=== PATIENT | female | born 1950 | race Two or more races ===

== ENCOUNTER → 2021-01-24 | Outpatient (CLI) | payer MEDICARE | LOC: M WHC 15:56 | PROVIDERS: ATTEND Internal Medicine | DX: Z12.31 Encounter for screening mammogram for malignant neoplasm of breast (principal) ==

== ENCOUNTER → 2021-04-28 | Outpatient (CLI) | payer MEDICARE ==
--- NOTE | 2021-04-28 10:54 | REP ---
INDICATION: UPPER ABD PAIN. COMPARISON: None. TECHNIQUE: Real-time sonographic evaluation of right upper quadrant performed. FINDINGS: The gallbladder demonstrates no evidence of intraluminal sludge or calculi, wall thickening or pericholecystic fluid. There is no intrahepatic or extrahepatic biliary dilatation, common bile duct measures 4 mm in maximum diameter. Liver is somewhat increased in echotexture diffusely, with heterogeneity. This suggests diffuse fibrofatty infiltration. No gross mass is seen. Visualized pancreas is grossly unremarkable, not optimally seen due to overlying bowel gas. The right kidney demonstrates no hydronephrosis, with a normal size of 9.5 cm in length. No free fluid is seen. IMPRESSION: Findings suggesting some degree of fibrofatty infiltration of the liver. Otherwise unremarkable right upper quadrant ultrasound. <Electronically signed by Fabrice Murillo > 04/28/21 [id number]
== END ==
LOC: M RAD 08:47
PROVIDERS: ATTEND Internal Medicine Gastroenterology
DX: R10.10 Upper abdominal pain, unspecified (principal)

== ENCOUNTER → 2021-05-12 | Outpatient (CLI) | payer MEDICARE ==
[~2021-05-12] MED LIST: ATOR40TA75; LISI20TA33; OMEP-221; ZYRTTAB8 PO
== END ==
LOC: M LABSMTC 12:15
PROVIDERS: ATTEND Anesthesiology
DX: Z01.812 Encounter for preprocedural laboratory examination (principal); Z20.822 Contact with and (suspected) exposure to COVID-19

== ENCOUNTER 2021-05-17 12:04 | Day surgery (SDC) | payer MEDICARE ==
[~2021-05-17] VITALS: Ht 167.6 cm; Wt 93.8 kg
[~2021-05-17 12:04] MED LIST changes: -ATOR40TA75; +ATOR40TA75 PO; -LISI20TA33; +LISI20TA33 PO; +NS 1,000 ML IV ONE; -OMEP-221; +OMEP40CA5
[2021-05-17] MEDS ORDERED: propofoL 200 MG/20 ML VIAL As Ordered ONE (12:58)
[2021-05-17] MEDS ORDERED: LIDOCAINE 2% 100MG/5ML SDV (FOR ANES.) As Ordered ONE (12:58)
[2021-05-17] MEDS ORDERED: fentaNYL 100 MCG/2 ML INJECTION As Ordered ONE (12:59)
[2021-05-17 13:55] VITALS: BP 124/77
[2021-09-18] MEDS ORDERED: OMEP-173 PO (13:31)
== END 2021-05-17 14:03 | disposition home or self-care (01) ==
LOC: M OPP 12:04
PROVIDERS: ATTEND Internal Medicine Gastroenterology
DX: K44.9 Diaphragmatic hernia without obstruction or gangrene (principal); K21.9 Gastro-esophageal reflux disease without esophagitis; R10.13 Epigastric pain; Z79.899 Other long term (current) drug therapy

== ENCOUNTER 2021-09-18 08:29 | Observation (INO) | payer MEDICARE ==
[~2021-09-18] VITALS: Ht 167.6 cm; Wt 93.6 kg
[~2021-09-18 08:29] MED LIST changes: -NS 1,000 ML IV ONE; +OMEP-221; -OMEP40CA5
--- OUTSIDE RECORDS SUMMARY | 2021-09-18 08:38 | CCD | Continuity of Care Document ---
Author Author Vlad MCCORD MD Organization Unknown Address [address] [place] [address] Phone [phone] Care Team Providers Care Transitional Living Specialist Name Role Phone Jillian Mccord MD [facility] [phone] [facility] Gastroenterology [facility] [phone] Problems Active Problems Provider Date Essential hypertension Jillian Mccord MD Onset: 12/01/19 Pure hypercholesterolemia Jillian Mccord MD Onset: 12/01 Obesity Jillian Mccord MD Onset: 12/01/2020 Hyperlipidemia Jillian Mccord MD Onset: 12/01/2020 Social History Type Date Description Comments Sex Unknown Tobacco Use Start: Unknown Never Smoked Cigarettes Tobacco Use Start: Unknown Never Smoked Cigars Tobacco Use Start: Unknown Never Smoked A Pipe Tobacco Use Start: Unknown Never Used Smokeless Tobacco ETOH Use Denies alcohol use Tobacco Use Start: Unknown Patient has never smoked Recreational Drug Use Denies Drug Use Allergies and adverse reactions Active Allergies Criticality Reaction | Severity Comments Date NKDA Unable to assess criticality 12/01/2020 Seasonal Unable to assess criticality Itching, Nasal congestion | Moderate 12/01/2020 NKFA Unable to assess criticality 12/01/2020 Medications Active Medications SIG Qnty Indications Ordering Provide r Date Flonase Allergy Relief 50mcg/Act Suspension 2 sprays (50 mcg/spray) per nostril once daily as needed 29.7ml Jillian Mccord MD 09/06/[address] 1 tablet by mouth daily morning 15 minures before meals for acid reflux 90caps Jillian Mccord MD 12/02/2020 Atorvastatin Calcium 40mg Tablets 1 by mouth every day at bedtime 90talela Mccord MD 12/01/2020 ALL Day Allergy 10mg Tablets take one tablet by mouth once daily OTC Unknown 0 Lisinopril 20mg Tablets 1 by mouth every day 90cale Mccord MD Immunizations CPT Code Status Date Vaccine Lot # [id number] Given 09/06/2021 Influenza (>= 6 Months) P.F. Vaccine [id number] Given 12/01/2020 [id number] (Pneumovax 23 ) Vaccine [id number] Vital Signs Date Vital Result Comment 09/06/2021 3:02pm BP Systolic 122 mmHg BP Diastolic 80 mmHg Heart Rate 65 /min Body Temperature 97.3 F Respiratory Rate 16 /min O2 % BldC Oximetry 98 % Weight 201.25 lb Weight 91.287 kg 03/01/2021 1:02pm BP Systolic 132 mmHg BP Diastolic 60 mmHg Heart Rate 74 /min Body Temperature 97.2 F Respiratory Rate 16 /min O2 % BldC Oximetry 98 % Weight 204.12 lb Weight 92.591 kg Height 66 inches 5'6" BMI (Body Mass Index) 32.9 kg/m2 BSA (Body Surface Area) 2.02 m2 Results Description No Information Available Procedures Date Code Description Status 01/24/2021 [id number] Mammogram Completed Medical Devices Description No Information Available Encounters Description No Information Available Assessments Description No Information Available Plan of Treatment 09/06/2021 - Jillian Mccord MD* All * New Medication:* Flonase Allergy Relief 50 mcg/Act - 2 sprays (50 mcg/spray) per nostril once daily as needed * Follow up:* 6 months Functional Status Functional Condition Comment Date Status Glasses Active Mental Status Description No Information Available Referrals Description No Information Available
--- OUTSIDE RECORDS SUMMARY | 2021-09-18 08:38 | CCD ---
Author Author [facility] Organization [facility] Address Unknown Phone Unavailable Care Team Providers Care Taproom Attendant Name Role Phone Peter Unger MD Unavailable Unavailable Peter Unger MD Unavailable Unavailable Peter Unger MD Unavailable Unavailable Peter Unger MD Unavailable Unavailable Peter Unger MD Unavailable Unavailable Peter Unger MD Unavailable Unavailable Peter Unger MD Unavailable Unavailable Peter Unger MD Unavailable Unavailable Peter Unger MD Unavailable Unavailable Peter Unger MD Unavailable Unavailable Peter Unger MD Unavailable Unavailable Peter Unger MD Unavailable Unavailable Peter Unger MD Unavailable Unavailable Peter Unger MD Unavailable Unavailable Peter Unger MD Unavailable Unavailable Peter Unger MD Unavailable Unavailable Peter Unger MD Unavailable Unavailable Peter Unger MD Unavailable Unavailable Peter Unger MD Unavailable Unavailable Peter Unger MD Unavailable Unavailable Peter Unger MD Unavailable Unavailable Peter Unger MD Unavailable Unavailable Peter Unger MD Unavailable Unavailable Peter Unger MD Unavailable Unavailable Peter Unger MD Unavailable Unavailable Peter Unger MD Unavailable Unavailable Peter Unger MD Unavailable Unavailable Peter Unger MD Unavailable Unavailable Peter Unger MD Unavailable Unavailable Peter Unger MD Unavailable Unavailable Peter Unger MD Unavailable Unavailable Peter Unger MD Unavailable Unavailable Peter Unger MD Unavailable Unavailable Peter Unger MD Unavailable Unavailable Peter Unger MD Unavailable Unavailable Peter Unger MD Unavailable Unavailable Peter Unger MD Unavailable Unavailable Peter Unger MD Unavailable Unavailable Peter Unger MD Unavailable Unavailable Peter Unger MD Unavailable Unavailable Peter Unger MD Unavailable Unavailable Peter Unger MD Unavailable Unavailable Peter Unger MD Unavailable Unavailable Peter Unger MD Unavailable Unavailable Peter Unger MD Unavailable Unavailable Peter Unger MD Unavailable Unavailable Peter Unger MD Unavailable Unavailable Peter Unger MD Unavailable Unavailable Peter Unger MD Unavailable Unavailable Peter Unger MD Unavailable Unavailable LOPEZ, OZIEL DENNIS MANAGER [employer] SAL[employer] Unavailable Unavailable LOPEZ, OZIEL DENNIS MANAGER [employer] SAL[employer] Unavailable Unavailable LOPEZ, OZIEL DENNIS MANAGER [employer]ELD SAL[employer] Unavailable Unavailable LOPEZ, OZIEL DENNIS MANAGER [employer]ELD SALES Unavailable Unavailable LOPEZ, OZIEL DENNIS MANAGER FIELD SALES Unavailable Unavailable LOPEZ, OZIEL DENNIS MANAGER FIELD SALES Unavailable Unavailable LOPEZ, OZIEL DENNIS MANAGER [employer]ELD SALES Unavailable Unavailable LOPEZ, OZIEL DENNIS MANAGER [employer]ELD SALES Unavailable Unavailable LOPEZ, OZIEL DENNIS MANAGER FIELD SALES Unavailable Unavailable LOPEZ, OZIEL DENNIS MANAGER [employer]ELD SALES Unavailable Unavailable LOPEZ, OZIEL DENNIS MANAGER FIELD SALES Unavailable Unavailable LOPEZ, OZIEL DENNIS MANAGER FIELD SALES Unavailable Unavailable LOPEZ, OZIEL DENNIS MANAGER FIELD SALES Unavailable Unavailable LOPEZ, OZIEL DENNIS MANAGER FIELD SALES Unavailable Unavailable LOPEZ, OZIEL DENNIS MANAGER FIELD SALES Unavailable Unavailable LOPEZ, OZIEL DENNIS MANAGER FIELD SALES Unavailable Unavailable LOPEZ, OZIEL DENNIS MANAGER FIELD SALES Unavailable Unavailable LOPEZ, OZIEL DENNIS MANAGER FIELD SALES Unavailable Unavailable LOPEZ, OZIEL DENNIS MANAGER FIELD SALES Unavailable Unavailable LOPEZ, OZIEL DENNIS MANAGER FIELD SALES Unavailable Unavailable LOPEZ, OZIEL DENNIS MANAGER FIELD SALES Unavailable Unavailable LOPEZ, OZIEL DENNIS MANAGER [employer]ELD SALES Unavailable Unavailable LOPEZ, OZIEL DENNIS MANAGER [employer] SAL[employer] Unavailable Unavailable Dayton Mccord MD Unavailable Unavailable Dayton Mccord MD Unavailable Unavailable Dayton Mccord MD Unavailable Unavailable Dayton Mccord MD Unavailable Unavailable Dayton Mccord MD Unavailable Unavailable Dayton Mccord MD Unavailable Unavailable Dayton Mccord MD Unavailable Unavailable Dayton Mccord MD Unavailable Unavailable Dayton Mccord MD Unavailable Unavailable Dayton Mccord MD Unavailable Unavailable Dayton Mccord MD Unavailable Unavailable Dayton Mccord MD Unavailable Unavailable Kunnumpurath, F Jillian MD Unavailable Unavailable Kunnumpurath, F Jillian MD Unavailable Unavailable [place]unn[place]ath, F Jillian MD Unavailable Unavailable [place]unn[place]ath, F Jillian MD Unavailable Unavailable [place], F Jillian MD Unavailable Unavailable [place]ath, F Jillian MD Unavailable Unavailable [place], F Jillian MD Unavailable Unavailable [place], F Jillian MD Unavailable Unavailable [place], F Jillian MD Unavailable Unavailable [place], F Jillian MD Unavailable Unavailable [place], F Jillian MD Unavailable Unavailable [place], F Jillian MD Unavailable Unavailable [place], F Jillian MD Unavailable Unavailable [place], F Jillian MD Unavailable Unavailable [place], F Jillian MD Unavailable Unavailable [place], F Jillian MD Unavailable Unavailable [place], F Jillian MD Unavailable Unavailable [place], F Jillian MD Unavailable Unavailable [place], F Jillian MD Unavailable Unavailable [place], F Jillian MD Unavailable Unavailable [place]ath, F Jillian MD Unavailable Unavailable [place]unn[place]ath, F Jillian MD Unavailable Unavailable [place]unn[place]ath, F Jillian MD Unavailable Unavailable [place]ath, F Jillian MD Unavailable Unavailable Kunn[place]urath, F Jillian MD Unavailable Unavailable Kunnumpurath, F Jillian MD Unavailable Unavailable Kunn[place]ath, F Jillian MD Unavailable Unavailable Kunn[place]ath, F Jillian MD Unavailable Unavailable Kunnumpurath, F Jillian MD Unavailable Unavailable Kunnumpurath, F Jillian MD Unavailable Unavailable Kunnumpurath, F Jillian MD Unavailable Unavailable Kunnumpurath, F Jillian MD Unavailable Unavailable Kunnumpurath, F Jillian MD Unavailable Unavailable Kunnumpurath, F Jillian MD Unavailable Unavailable Kunnumpurath, F Jillian MD Unavailable Unavailable Kunnumpurath, F Jillian MD Unavailable Unavailable Kunnumpurath, F Jillian MD Unavailable Unavailable Kunnumpurath, F Jillian MD Unavailable Unavailable Kunnumpurath, F Jillian MD Unavailable Unavailable Kunnumpurath, F Jillian MD Unavailable Unavailable [place]ath, F Jillian MD Unavailable Unavailable [place], F Jillian MD Unavailable Unavailable [place], F Jillian MD Unavailable Unavailable [place]ath, F Jillina MD Unavailable Unavailable [place]ath, F Jillian MD Unavailable Unavailable [place], F Jillian MD Unavailable Unavailable [place], F Jillian MD Unavailable Unavailable [place], F Jillian MD Unavailable Unavailable [place], F Jillian MD Unavailable Unavailable Kunnumpurath, F Jillian MD Unavailable Unavailable Kunnumpurath, F Jillian MD Unavailable Unavailable Kunnumpurath, F Jillian MD Unavailable Unavailable Kunnumpurath, F Jillian MD Unavailable Unavailable Kunnumpurath, F Jillian MD Unavailable Unavailable Kunnumpurath, F Jillian MD Unavailable Unavailable Kunnumpurath, F Jillian MD Unavailable Unavailable Kunnumpurath, F Jillian MD Unavailable Unavailable Kunnumpurath, F Jillian MD Unavailable Unavailable Kunnumpurath, F Jillian MD Unavailable Unavailable Kunnumpurath, F Jillian MD Unavailable Unavailable Kunnumpurath, F Jillian MD Unavailable Unavailable Kunnumpurath, F Jillian MD Unavailable Unavailable Kunn[place]ath, F Jillian MD Unavailable Unavailable [place]ath, F Jillian MD Unavailable Unavailable [place]ath, F Jillian MD Unavailable Unavailable [place]ath, F Jillian MD Unavailable Unavailable [place], F Jillian MD Unavailable Unavailable [place], F Jillian MD Unavailable Unavailable [place]ath, F Jillian MD Unavailable Unavailable [place]ath, F Jillian MD Unavailable Unavailable [place]ath, F Jillian MD Unavailable Unavailable Kunn[place]urath, F Jillian MD Unavailable Unavailable Kunnumpurath, F Jillian MD Unavailable Unavailable Kunnumpurath, F Jillian MD Unavailable Unavailable [place]ath, F Jillian MD Unavailable Unavailable [place]ath, F Jillian MD Unavailable Unavailable [place], F Jillian MD Unavailable Unavailable [place], F Jillian MD Unavailable Unavailable [place], F Jillian MD Unavailable Unavailable [place], F Jillian MD Unavailable Unavailable Re-disclosure Warning The records that you are about to access may contain information from federally-assisted alcohol or drug abuse programs. If such information is present, then the following federally mandated warning applies: This information has been disclosed to you from records protected by federal confidentiality rules (42 CFR part 2). The federal rules prohibit you from making any further disclosure of this information unless further disclosure is expressly permitted by the written consent of the person to whom it pertains or as otherwise permitted by 42 CFR part 2. A general authorization for the release of medical or other information is NOT sufficient for this purpose. The Federal rules restrict any use of the information to criminally investigate or prosecute any alcohol or drug abuse patient.The records that you are about to access may contain highly sensitive health information, the redisclosure of which is protected by Article 27-F of the [facility] Public Health law. If you continue you may have access to information: Regarding HIV / AIDS; Provided by facilities licensed or operated by the [facility] Office of Mental Health; or Provided by the [facility] Office for People With Developmental Disabilities. If such information is present, then the following [facility] mandated warning applies: This information has been disclosed to you from confidential records which are protected by state law. State law prohibits you from making any further disclosure of this information without the specific written consent of the person to whom it pertains, or as otherwise permitted by law. Any unauthorized further disclosure in violation of state law may result in a fine or mcc sentence or both. A general authorization for the release of medical or other information is NOT sufficient authorization for further disc losure. Encounters Encounter Providers Location Date Indications Data Source(s ) Outpatient Attender: Jillian Mccord MD 1 02:54:00 PM EDT - 09/06/2021 02:54:00 PM EDT [facility] Outpatient Attender: Marco A Unger MD Main Office 04/18/2021 09:30:00 AM EDT [facility] ([facility]) Outpatient Attender: Jillian Mccord MD 0 03/01/2021 12:53:00 PM EDT - 03/01/2021 12:53:00 PM EDT [facility] Outpatient Attender: DENNIS LOPEZ NP 021 02:23:00 PM EST - 01/02/2021 02:23:00 PM [facility] Outpatient Attender: Jillian Mccord MD 0 12/01/2020 02:34:00 PM EST - 12/01/2020 02:34:00 PM EST [facility] Outpatient Attender: Jillian Mccord MD Family Practice 0 12/01/2020 01:40:00 PM EST [facility] ([facility]) Immunizations Vaccine Date Status Description Data Source(s) New in 2011. IIV4 09/06/2021 03:44:00 PM EDT completed [facility] ([facility]) pneumococcal polysaccharide PPV23 12/01/2020 02:40:00 PM EST comple jayy [facility] ([facility]) Medications Medication Brand Name Start Date Product Form Dose Route Admi nistrative Instructions Pharmacy Instructions Status Indications Reaction Description Data Source(s) Flonase Allergy Relief Flonase Allergy Relief 09/06/2021 12:00:00 AM E DT active [facility] ([facility]) Omeprazole 40 MG Delayed Release Oral Capsule Omeprazole 04/18/2021 12:00:00 AM EDT ORAL active [facility] ([facility]) Triamcinolone Acetonide 5 MG/ML Topical Cream Triamcinolone Acetonide 03/01/2021 12:00:00 AM EDT active M [facility] ([facility]) Omeprazole 20 MG Delayed Release Oral Capsule Omeprazole 12/02/2020 12:00:00 AM EST ORAL active [facility] ([facility]) atorvastatin 40 MG Oral Tablet Atorvastatin Calcium 12/01/2020 1 2:00:00 AM EST ORAL active [facility] ( [facility]) Insurance Providers Payer name Policy type / Coverage type Policy ID Covered alliance party ID Covered alliance party's relationship to kilgore Policy [place] Plan Information MEDICARE BLUE PPO [id number] SP [id number] [employer] MEDICARE HM [id number] [facility] MCR -OP [id number] Problems, Conditions, and Diagnoses Code Display Name Description Problem Type Effective Dates Data Source(s) Z23 Encounter for immunization Encounter for immunization Diagnosis 09/06/2021 02:54:00 PM EDT [facility] E785 Hyperlipidemia, unspecified Hyperlipidemia, unspecifie d Diagnosis 09/06/2021 02:54:00 PM EDT [facility] I10 Essential (primary) hypertension Essential (primary) h ypertension Diagnosis 09/06/2021 02:54:00 PM EDT [facility] J392 Other diseases of pharynx Other diseases of pharynx Di agnosis 09/06/2021 02:54:00 PM EDT [facility] [id number] Encounter for gynecological examination (general) (routine) without abnormal findings Encounter for gynecological examination (general) (routine) without abnormal findings Diagnosis 01/02/2021 02:23:00 PM [facility] Z1331 Encounter for screening for depression E ncounter for screening for depression Diagnosis 12/01/2020 02:34:00 PM [facility] K219 Gastro-esophageal reflux disease without esophagitis Gastro-esophageal reflux disease without esophagitis Diagnosis 12/01/2020 02:34:00 PM ES [facility] E669 Obesity, unspecified Obesity, unspecified Diagnosis 12/01/2020 02:34:00 PM [facility] [id number] Gastroesophageal reflux disease Gastroesophageal reflux disease Problem 04/18/2021 12:00:00 AM EDT [facility] E78.5 Hyperlipidemia Hyperlipidemia Problem 12/01/2020 12:00: 00 AM EST [facility] ([facility]) E66.9 Obesity Obesity Problem 12/01/2020 12:00:00 AM ES T [facility] ([facility]) [id number] Pure hypercholesterolemia Pure hypercholesterolemia Pr oblem 12/01/2020 12:00:00 AM EST [facility] ([facility]) [id number] Essential hypertension Essential hypertension Problem 12/01/2020 12:00:00 AM EST [facility] ([facility]) Surgeries/Procedures Procedure Description Date Indications Data Source(s) UPPER NDSC BIOPSY SINGLE/MULTIPLE 05/17/2021 12:00:00 AM EDT [facility] ([facility]) OFFICE OUTPATIENT NEW 45 MINUTES 04/18/2021 12:00:00 A M EDT [facility] ([facility]) Mammography (procedure) 01/24/2021 12:00:00 AM EDT [facility] ([facility]) Electrocardiogram Complete 12/01/2020 12:00:00 AM EST [facility] ([facility]) Brief Emotional/Behav Assessment W/ Scoring Doc Per Standard Inst 12/01/2020 12:00:00 AM EST [facility] ([facility]) Admin Patient Focused Health Risk Assessment Instrument 12/01/2020 12:00:00 AM EST [facility] ([facility]) Results ID Date Data Source [id number] 05/17/2021 01:20:00 PM EDT [facility] ([facility]) Name Value Range Interpretation Code Description Data Natalie rce(s) Supporting Document(s) Surgical pathology study Laboratory test result [facility] ([facility]) FINAL DIAGNOSIS A - Antrum, biopsy: Gastric mucosa with minimal chronic inflammation and scattered eosinophils in the lamina propria. No H. pylori is noted. B - Biopsy below Z line: Squamocolumnar junction mucosa with marked chronic inflammation. No intestinal metaplasia is noted. H. pylori stain was performed. 05/19/2021 - 132 CLINICAL DIAGNOSIS Abdominal pain/heartburn 05/18/2021 - 1248 GROSS DIAGNOSIS A - Received in formalin labeled "antrum biopsy" is a 0.6 x 0.2 x 0.2 cm. portion of mucosa. All in one. B - Received in formalin labeled "below Z line" is a 1 x 0.2 x 0.2 cm. aggregate of mucosal fragments. All in one. - 05/18/2021 - 8 Signed Joseph Gerardo MD 05/19/2021 1325 ID Date Data Source [id number] 03/01/2021 01:26:00 PM EDT [facility] ([facility]) Name Value Range Interpretation Code Description Data Natalie rce(s) Supporting Document(s) Hemoglobin A1c/Hemoglobin.total in Blood 5.3 % 4.4-6.1 [facility] ([facility]) Is patient fasting? N Iron [Mass/volume] in Serum or Plasma 89 ug/dL 42-135 [facility] ([facility]) Is patient fasting? N ID Date Data Source [id number] 03/01/2021 01:26:00 PM EDT [facility] ([facility]) Name Value Range Interpretation Code Description Data Natalie rce(s) Supporting Document(s) Cve Panel Laboratory test result [facility] ([facility]) Is patient fasting? N Triglycerides 149 mg/dL 35-160 [facility] ([facility]) Is patient fasting? N Cholesterol 137 mg/dL 131-200 [facility] ([facility]) Is patient fasting? N HDL 64 mg/dL 29-86 [facility] ([facility]) Is patient fasting? N LDL 68 mg/dL 65-175 [facility] ([facility]) Is patient fasting? N Risk Factor 2.1 3.2-4.4 Below low normal [facility] ([facility]) Is patient fasting? N LDL/HDL 1.06 1.47-3.22 Below low normal [facility] ( [facility]) Is patient fasting? N ID Date Data Source [id number] 03/01/2021 01:26:00 PM EDT [facility] ([facility]) Name Value Range Interpretation Code Description Data Natalie rce(s) Supporting Document(s) Thyrotropin [Units/volume] in Serum or Plasma 1.56 uIU/mL 0.47-5.01 [facility] ([facility]) Is patient fasting? N Calcidiol [Mass/volume] in Serum or Plasma 33 ng/mL [facility] ([facility]) Is patient fasting? N Cobalamin (Vitamin B12) [Mass/volume] in Serum or Plasma 1583 pg /mL 232-1245 Above high normal [facility] ([facility]) Is patient fasting? N ID Date Data Source [id number] 03/01/2021 01:26:00 PM EDT [facility] ([facility]) Name Value Range Interpretation Code Description Data Natalie rce(s) Supporting Document(s) Comprehensive [employer]abo Laboratory test result [facility] ([facility]) Is patient fasting? N Sodium 138 meq/L 134-153 [facility] ([facility]) Is patient fasting? N Potassium 4.5 meq/L 3.6-5.0 [facility] ([facility]) Is patient fasting? N Chloride 103 meq/L 98-107 [facility] ([facility]) Is patient fasting? N Co2 26 meq/L 22-30 [facility] ([facility]) Is patient fasting? N Glucose 85 mg/dL 70-99 [facility] ([facility]) Is patient fasting? N BUN 27 mg/dL 7-21 Above high normal [facility] ([facility]) Is patient fasting? N Creatinine 0.9 mg/dL 0.7-1.5 [facility] ([facility]) Is patient fasting? N BUN/Creat 30 8-27 Above high normal [facility] ([facility]) Is patient fasting? N Total Protein 7.6 g/dL 6.3-8.2 [facility] Is patient fasting? N Albumin 4.4 g/dL 3.9-5.0 [facility]) Is patient fasting? N A/G Ratio 1.4 0.8-2.0 [facility] ([facility]) Is patient fasting? N Calcium 9.9 mg/dL 8.4-10.2 [facility] ([facility]) Is patient fasting? N Globulin 3.2 GM/DL 2.4-3.2 [facility]) Is patient fasting? N Alkaline Phos 61 U/L 38-126 [facility] ([facility]) Is patient fasting? N Total Bili Laboratory test result 0.2-1.3 [facility] ([facility]) Is patient fasting? N Sgot/Ast 35 U/L 5-40 [facility]) Is patient fasting? N SGPT/Alt 32 U/L 7-56 [facility] ([facility]) Is patient fasting? N Non-Aa GFR Laboratory test result [facility] ([facility]) Is patient fasting? N Age 70 yrs [facility] ([facility]) Is patient fasting? N Anion Gap 9.0 mmol/L 8.0-16.0 [facility] ([facility]) Is patient fasting? N Afr Amer GFR Laboratory test result [facility] ([facility]) Is patient fasting? N ID Date Data Source [id number] 03/01/2021 01:26:00 PM EDT [facility] ([facility]) Name Value Range Interpretation Code Description Data Natalie rce(s) Supporting Document(s) CBC No Diff Laboratory test result [facility] ([facility]) Is patient fasting? N WBC 6.7 10^3/uL 4.2-11.0 [facility] ([facility]) Is patient fasting? N RBC 4.58 10^6/uL 4.20-5.40 [facility] ([facility]) Is patient fasting? N Hemoglobin 12.5 g/dL 12.0-16.0 [facility] ([facility]) Is patient fasting? N MCV 84.1 fL 81.0-101 [facility] ([facility]) Is patient fasting? N Hematocrit 38.5 % 37.0-47.0 [facility] ([facility]) Is patient fasting? N MCH 27.3 pg 27.0-34.0 [facility] ([facility]) Is patient fasting? N MCHC 32.5 g/dL 31.0-36.0 [facility] ([facility]) Is patient fasting? N Platelets 200 10^3/uL 150-450 [facility] ([facility]) Is patient fasting? N RDW 14.3 % 11.5-14.5 [facility] ([facility]) Is patient fasting? N MPV 12.3 fL 7.4-10.4 Above high normal [facility] ([facility]) Is patient fasting? N ID Date Data Source [id number] 03/03/2021 08:34:00 AM EDT [facility] Value Range Interpretation Code Description Data Natalie rce(s) Supporting Document(s) Calcidiol [Moles/volume] in Serum or Plasma 33 NG/ML [facility] VITAMIN-D(2 5HYDROXY) Deficiency: <=20 ng/ml Insufficiency: 21-29 ng/ml Preferred level: => 30 ng/ml ID Date Data Source [id number] 03/01/2021 05:23:00 PM EDT [facility] Value Range Interpretation Code Description Data Natalie rce(s) Supporting Document(s) Cobalamin (Vitamin B12) [Mass/volume] in Serum or Plasma 1583 PG /ML 232 - 1245 H [facility] ID Date Data Source [id number] 03/01/2021 05:22:00 PM EDT [facility] Value Range Interpretation Code Description Data Natalie rce(s) Supporting Document(s) CBC NO DIFF [facility] ital COMPLETE BLOOD COUNT Leukocytes [#/volume] in Blood by Automated count 6.7 10^3/uL 4.2 - 1 1.0 [facility] Erythrocytes [#/volume] in Blood by Automated count 4.58 10^6/uL 4. 20 - 5.40 [facility] Hemoglobin [Mass/volume] in Blood 12.5 g/dL 12.0 - 16.0 [facility] Hematocrit [Volume Fraction] of Blood by Automated count 38.5 % 3 7.0 - 47.0 [facility] Erythrocyte mean corpuscular volume [Entitic volume] by Auto mated count 84.1 fL 81.0 - 101 [facility] Erythrocyte mean corpuscular hemoglobin [Entitic mass] by Automated count 27.3 pg 27.0 - 34.0 [facility] Erythrocyte mean corpuscular hemoglobin concentration [Mass/volume] by Automated count 32.5 g/dL 31.0 - 36.0 [facility] Erythrocyte distribution width [Ratio] by Automated count 14.3 % 11.5 - 14.5 [facility] Platelets [#/volume] in Blood by Automated count 200 10^3/uL 150 - 45 0 [facility] Platelet mean volume [Entitic volume] in Blood by Automated count 12.3 fL 7.4 - 10.4 H [facility] ID Date Data Source [id number] 03/01/2021 05:21:00 PM EDT [facility] Value Range Interpretation Code Description Data Natalie rce(s) Supporting Document(s) Thyrotropin [Units/volume] in Serum or Plasma by Detec tion limit <= 0.05 mIU/L 1.56 uIU/mL 0.47 - 5.01 [facility] ID Date Data Source [id number] 03/01/2021 05:20:00 PM EDT [facility] Name Value Range Interpretation Code Description Data Natalie rce(s) Supporting Document(s) CVE PANEL [facility] al LIPID PANEL Cholesterol [Mass/volume] in Serum or Plasma 137 MG/DL 131 - 200 [facility] Deprecated Triglyceride [Mass/volume] in Serum or Plasma 149 MG/DL 3 5 - 160 [facility] HDL 64 MG/DL 29 - [facility] Cholesterol in LDL [Mass/volume] in Serum or Plasma by Direc t assay 68 mg/dL 65 - 175 [facility] Cholesterol.total/Cholesterol in HDL [Mass Ratio] in Serum o r Plasma 2.1 3.2 - 4.4 L [facility] LDL/HDL 1.06 1.47 - 3.22 L [facility] ital CVE RISK CHOL/HDL LDL/HDLMEN: 1/2 AVERAGE 3.43 1.00 AVERAGE 4.97 3.55 2X AVERAGE 9.55 6.25 3X AVERAGE 23.99 7.99WOMEN: 1/2 AVERAGE 3.27 1.47 AVERAGE 4.44 3.22 2X AVERAGE 7.05 5.03 3X AVERAGE 11.04 6.14 ID Date Data Source [id number] 03/01/2021 05:20:00 PM EDT [facility] Name Value Range Interpretation Code Description Data Natalie e(s) Supporting Document(s) COMPREHENSIVE METABOLIC PANEL [facility] COMPREHENSIVE METABOLIC PANEL Sodium [Moles/volume] in Serum or Plasma 138 mEq/L 134 - 153 [facility] Potassium [Moles/volume] in Serum or Plasma 4.5 mEq/L 3.6 - 5.0 [facility] Chloride [Moles/volume] in Serum or Plasma 103 mEq/L 98 - 107 [facility] Carbon dioxide, total [Moles/volume] in Serum or Plasma 26 MEQ/L 22 - 30 [facility] Glucose [Mass/volume] in Serum or Plasma 85 MG/DL 70 - 99 [facility] BUN 27 MG/DL 7 - 21 [facility] Creatinine [Mass/volume] in Serum or Plasma 0.9 MG/DL 0.7 - 1.5 [facility] BUN/CREAT 30 8 - 27 [facility] Protein [Mass/volume] in Serum or Plasma 7.6 G/DL 6.3 - 8.2 [facility] Albumin [Mass/volume] in Serum or Plasma 4.4 G/DL 3.9 - 5.0 [facility] Globulin [Mass/volume] in Serum by calculation 3.2 GM/DL 2.4 - 3.2 [facility] A/G RATIO 1.4 0.8 - 2.0 [facility] Calcium [Mass/volume] in Serum or Plasma 9.9 MG/DL 8.4 - 10.2 [facility] Bilirubin.total [Mass/volume] in Serum or Plasma <0.7 MG/DL 0.2 - 1.3 [facility] Alkaline phosphatase [Enzymatic activity/volume] in Serum or Plasma 61 U/L 38 - 126 [facility] Aspartate aminotransferase [Enzymatic activity/volume] in Serum or Plasma 35 U/L 5 - 40 [facility] Alanine aminotransferase [Enzymatic activity/volume] in Seru m or Plasma 32 U/L 7 - 56 [facility] Anion gap 3 in Serum or Plasma 9.0 mmol/L 8.0 - 16.0 [facility] 70 [facility] >60 mL/min [facility] ital AFR AMER GFR >60 [facility] Male GFR In terprentation 20-49 yrs >60 mL/min Normal 50-59 yrs >56 mL/min Normal 60-69 yrs >49 mL/min Normal 70-79yrs >42 mL/min Normal 80 and above >35 mL/min Normal Female GFR Interpretation 20-39 yrs >60 mL/min Normal 40-49 yrs >58 mL/min Normal 50-59 yrs >51 mL/min Normal 60-69 yrs >45 mL/min Normal 70-79 yrs >39 mL/min Normal 80 and above >32 mL/min Normal ID Date Data Source [id number] 03/01/2021 05:20:00 PM EDT [facility] Name Value Range Interpretation Code Description Data Natalie rce(s) Supporting Document(s) Hemoglobin A1c/Hemoglobin.total in Blood 5.3 % 4.4 - 6.1 [facility] {A1]{HB] ID Date Data Source [id number] 03/01/2021 05:09:00 PM EDT [facility] Name Value Range Interpretation Code Description Data Natalie rce(s) Supporting Document(s) Iron [Mass/volume] in Serum or Plasma 89 UG/DL 42 - 135 [facility] ID Date Data Source [id number] 12/01/2020 03:45:00 PM EST [facility] ([facility]) Name Value Range Interpretation Code Description Data Natalie rce(s) Supporting Document(s) Inhouse EKG Laboratory test result [facility] ([facility]) ID Date Data Source [id number] 12/01/2020 03:05:00 PM EST [facility] ([facility]) Name Value Range Interpretation Code Description Data Natalie rce(s) Supporting Document(s) Mammo Screening Bilateral with CAD [facility]) Procedure Social History No Information Vital Signs ID Date Data Source UNK Name Value Range Interpretation Code Description Data Source(s) Systolic blood pressure 122 mm[Hg] 122 mm[Hg] [facility] ([facility]) Diastolic blood pressure 80 mm[Hg] 80 mm[Hg] [facility] ([facility]) Heart rate 65 /min 65 /min [facility] ([facility]) Body temperature 97.3 [degF] 97.3 [degF] [facility] ([facility]) Respiratory rate 16 /min 16 /min [facility] ( [facility]) Oxygen saturation in Arterial blood by Pulse oximetry 98 % 98 % [facility] ([facility]) Body weight 201.25 [lb_av] 201.25 [lb_av] [facility] ([facility]) Body weight 91.287 kg 91.287 kg [facility] ([facility]) Body height 68 [in_i] 68 [in_i] [facility] ([facility]) 5'8" Body weight 204.00 [lb_av] 204.00 [lb_av] [facility] ([facility]) Systolic blood pressure 132 mm[Hg] 132 mm[Hg] [facility] ([facility]) Diastolic blood pressure 70 mm[Hg] 70 mm[Hg] [facility] ([facility]) Heart rate 66 /min 66 /min [facility] ([facility]) Body mass index (BMI) [Ratio] 31.0 kg/m2 31.0 k g/m2 [facility] ([facility]) Body weight 92.534 kg 92.534 kg [facility] ([facility]) Body temperature 96.8 [degF] 96.8 [degF] [facility] ([facility]) Systolic blood pressure 132 mm[Hg] 132 mm[Hg] [facility] ([facility]) Diastolic blood pressure 60 mm[Hg] 60 mm[Hg] [facility] ([facility]) Heart rate 74 /min 74 /min [facility] ([facility]) Body temperature 97.2 [degF] 97.2 [degF] [facility] ([facility]) Respiratory rate 16 /min 16 /min [facility] ( [facility]) Oxygen saturation in Arterial blood by Pulse oximetry 98 % 98 % [facility] ([facility]) Body weight 204.12 [lb_av] 204.12 [lb_av] [facility] ([facility]) Body weight 92.591 kg 92.591 kg [facility] ([facility]) Body height 66 [in_i] 66 [in_i] [facility] ([facility]) 5'6" Body mass index (BMI) [Ratio] 32.9 kg/m2 32.9 k g/m2 [facility] ([facility]) Body surface area Derived from formula 2.02 m2 2.02 m2 [facility] ([facility]) Systolic blood pressure 142 mm[Hg] 142 mm[Hg] [facility] ([facility]) Diastolic blood pressure 76 mm[Hg] 76 mm[Hg] [facility] ([facility]) Body height 66 [in_i] 66 [in_i] [facility] ([facility]) 5'6" Body mass index (BMI) [Ratio] 33.1 kg/m2 33.1 k g/m2 [facility] ([facility]) Body surface area Derived from formula 2.02 m2 2.02 m2 [facility] ([facility] Heart rate 80 /min 80 /min [facility] ([facility]) Body temperature 96.9 [degF] 96.9 [degF] [facility] ([facility]) Body weight 205.00 [lb_av] 205.00 [lb_av] [facility] Body weight 92.988 kg 92.988 kg [facility] ([facility]) Systolic blood pressure 112 mm[Hg] 112 mm[Hg] [facility] ([facility]) Diastolic blood pressure 68 mm[Hg] 68 mm[Hg] [facility] ([facility]) Heart rate 69 /min 69 /min [facility] ([facility]) Body temperature 98.1 [degF] 98.1 [degF] [facility] ([facility]) Oxygen saturation in Arterial blood by Pulse oximetry 97 % 97 % [facility] ([facility]) Body weight 204.00 [lb_av] 204.00 [lb_av] [facility] Body weight 92.534 kg 92.534 kg [facility] ([facility]) Body height 66 [in_i] 66 [in_i] [facility] ([facility]) 5'6" Body mass index (BMI) [Ratio] 32.9 kg/m2 32.9 k g/m2 [facility] ([facility]) Body surface area Derived from formula 2.02 m2 2.02 m2 [facility] ([facility])
--- NOTE | 2021-09-18 09:29 | REP ---
INDICATION: trouble speaking. COMPARISON: None. TECHNIQUE: Soft tissue and bone windows in axial plane with coronal reconstructions provided. FINDINGS: On lateral ventricles are midline and symmetric and mildly dilated proportionate to the diffuse cerebral atrophy. 3rd and 4th ventricles are also mildly dilated. There is no vascular territory infarct, intracranial hemorrhage, mass or mass effect there are few calcifications in the basal ganglia which are normal in this age group. The mendoza-white junction differentiation was well maintained. Brainstem was unremarkable. Cerebellum with some mild atrophy. No posterior fossa hemorrhage. Basal cisterns intact. Skull base bone windows show mastoids and visualized sinuses clear. No fracture or focal lesion of the skull base or calvarium. Some mild calcifications within the carotid siphons noted bilaterally. IMPRESSION: 1. Mild ventriculomegaly with proportionate cerebral and cerebellar atrophy. No intracranial hemorrhage, acute infarct, mass or mass effect. The mendoza-white junction differentiation maintained. 2. Sinuses, mastoids, skull base and calvarium preserved. <Electronically signed by Pablo Polo > 09/18/21 [id number]
--- OUTSIDE RECORDS SUMMARY | 2021-09-18 10:15 | CCD ---
Author Author [facility] Organization [facility] Address Unknown Phone Unavailable Care Team Providers Care Aerologist Name Role Phone Peter Unger MD Unavailable [...] Unger MD Unavailable Unavailable LOPEZ, OZIEL DENNIS METAL TILE SETTER Unavailable Unavailable LOPEZ, OZIEL DENNIS METAL TILE SETTER Unavailable Unavailable LOPEZ, OZIEL DENNIS METAL TILE SETTER Unavailable Unavailable LOPEZ, OZIEL DENNIS METAL TILE SETTER Unavailable Unavailable LOPEZ, OZIEL DENNIS METAL TILE SETTER Unavailable Unavailable LOPEZ, OZIEL DENNIS METAL TILE SETTER Unavailable Unavailable LOPEZ, OZIEL DENNIS METAL TILE SETTER Unavailable Unavailable LOPEZ, OZIEL DENNIS METAL TILE SETTER Unavailable Unavailable LOPEZ, OZIEL DENNIS METAL TILE SETTER Unavailable Unavailable LOPEZ, OZIEL DENNIS METAL TILE SETTER Unavailable Unavailable LOPEZ, OZIEL DENNIS METAL TILE SETTER Unavailable Unavailable LOPEZ, OZIEL DENNIS METAL TILE SETTER Unavailable Unavailable LOPEZ, OZIEL DENNIS METAL TILE SETTER Unavailable Unavailable LOPEZ, OZIEL DENNIS METAL TILE SETTER Unavailable Unavailable LOPEZ, OZIEL DENNIS METAL TILE SETTER Unavailable Unavailable LOPEZ, OZIEL DENNIS METAL TILE SETTER Unavailable Unavailable LOPEZ, OZIEL DENNIS METAL TILE SETTER Unavailable Unavailable LOPEZ, OZIEL DENNIS METAL TILE SETTER Unavailable Unavailable LOPEZ, OIZEL DENNIS METAL TILE SETTER Unavailable Unavailable LOPEZ, OZIEL DENNIS METAL TILE SETTER Unavailable Unavailable LOPEZ, OZIEL DENNIS METAL TILE SETTER Unavailable Unavailable LOPEZ, OZIEL DENNIS METAL TILE SETTER Unavailable Unavailable LOPEZ, OZIEL DENNIS METAL TILE SETTER Unavailable Unavailable Dayton Mccord MD Unavailable Unavailable [...] Article 27-F of the [facility] Public Health law. If you continue you may have access to information: Regarding HIV / AIDS; Provided by facilities licensed or operated by the [facility] Office of Mental Health; or Provided by the [facility] Office for People With Developmental Disabilities. If such information is present, then the following [facility] mandated warning applies: This information has been [...] law may result in a fine or half-way sentence or both. A general authorization for the release of medical or other information is NOT sufficient authorization for further disc losure. Encounters Encounter Providers Location Date Indications Data Source(s ) Outpatient Attender: Jillian Mccord MD 1 02:54:00 PM EDT - 09/06/2021 02:54:00 PM EDT [facility] Outpatient Attender: Marco A Unger MD Main Office 04/18/2021 09:30:00 AM EDT [facility] ([facility]) Outpatient Attender: Jillian Mccord MD 0 03/01/2021 12:53:00 PM EDT - 03/01/2021 12:53:00 PM EDT [facility] Outpatient Attender: DENNIS LOPEZ NP 021 02:23:00 PM EST - 01/02/2021 02:23:00 PM [facility] Outpatient Attender: Jillian Mccord MD 0 12/01/2020 02:34:00 PM EST - 12/01/2020 02:34:00 PM EST [facility] Outpatient Attender: Jillian Mccord MD Family Practice 0 12/01/2020 01:40:00 PM EST [facility] ([facility]) Immunizations Vaccine Date Status Description Data Source(s) New in 2011. IIV4 09/06/2021 03:44:00 PM EDT completed [facility] ([facility]) pneumococcal polysaccharide PPV23 12/01/2020 02:40:00 PM EST comple jayy [facility] ([facility]) Medications Medication Brand Name Start Date Product Form Dose Route Admi nistrative Instructions Pharmacy Instructions Status Indications Reaction Description Data Source(s) Flonase Allergy Relief Flonase Allergy Relief 09/06/2021 12:00:00 AM E DT active [facility] ([facility]) Omeprazole 40 MG Delayed Release Oral Capsule Omeprazole 04/18/2021 12:00:00 AM EDT ORAL active [facility] ([facility]) Triamcinolone Acetonide 5 MG/ML Topical Cream Triamcinolone Acetonide 03/01/2021 12:00:00 AM EDT active M [facility] ([facility]) Omeprazole 20 MG Delayed Release Oral Capsule Omeprazole 12/02/2020 12:00:00 AM EST ORAL active [facility] ([facility]) atorvastatin 40 MG Oral Tablet Atorvastatin Calcium 12/01/2020 1 2:00:00 AM EST ORAL active [facility] ( [facility]) Insurance Providers Payer name Policy type / Coverage type Policy ID Covered libertarian ID Covered libertarian's relationship to kilgore Policy [place] Plan Information MEDICARE BLUE PPO 306 [id number] SP [id number] [employer] [place] MEDICARE HM [id number] [facility] MCR -OP [id number] Problems, Conditions, and Diagnoses Code Display Name Description Problem Type Effective Dates Data Source(s) Z23 Encounter for immunization Encounter for immunization Diagnosis 09/06/2021 02:54:00 PM EDT [facility] E785 Hyperlipidemia, unspecified Hyperlipidemia, unspecifie d Diagnosis 09/06/2021 02:54:00 PM EDT [facility] I10 Essential (primary) hypertension Essential (primary) h ypertension Diagnosis 09/06/2021 02:54:00 PM EDT [facility] J392 Other diseases of pharynx Other diseases of pharynx Di agnosis 09/06/2021 02:54:00 PM EDT [facility] [id number] Encounter for gynecological examination (general) (routine) without abnormal findings Encounter for gynecological examination (general) (routine) without abnormal findings Diagnosis 01/02/2021 02:23:00 PM [facility] Z1331 Encounter for screening for depression E ncounter for screening for depression Diagnosis 12/01/2020 02:34:00 PM [facility] K219 Gastro-esophageal reflux disease without esophagitis Gastro-esophageal reflux disease without esophagitis Diagnosis 12/01/2020 02:34:00 PM ES [facility] E669 Obesity, unspecified Obesity, unspecified Diagnosis 12/01/2020 02:34:00 PM [facility] [id number] Gastroesophageal reflux disease Gastroesophageal reflux disease Problem 04/18/2021 12:00:00 AM EDT [facility] E78.5 Hyperlipidemia Hyperlipidemia Problem 12/01/2020 12:00: 00 AM EST [facility] ([facility]) E66.9 Obesity Obesity Problem 12/01/2020 12:00:00 AM ES T [facility] ([facility]) [id number] Pure hypercholesterolemia Pure hypercholesterolemia Pr oblem 12/01/2020 12:00:00 AM EST [facility] ([facility]) [id number] Essential hypertension Essential hypertension Problem 12/01/2020 12:00:00 AM EST [facility] ([facility]) Surgeries/Procedures Procedure Description Date Indications Data Source(s) UPPER NDSC BIOPSY SINGLE/MULTIPLE 05/17/2021 12:00:00 AM EDT [facility] ([facility]) OFFICE OUTPATIENT NEW 45 MINUTES 04/18/2021 12:00:00 A M EDT [facility] ([facility]) Mammography (procedure) 01/24/2021 12:00:00 AM EDT [facility] ([facility]) Electrocardiogram Complete 12/01/2020 12:00:00 AM EST [facility] ([facility]) Brief Emotional/Behav Assessment W/ Scoring Doc Per Standard Inst 12/01/2020 12:00:00 AM EST [facility] ([facility]) Admin Patient Focused Health Risk Assessment Instrument 12/01/2020 12:00:00 AM EST [facility] ([facility]) Results ID Date Data Source [id number] 05/17/2021 01:20:00 PM EDT [facility] ([facility]) Name Value Range Interpretation Code Description Data Natalie rce(s) Supporting Document(s) Surgical pathology study Laboratory test result [facility] ([facility]) FINAL DIAGNOSIS A - Antrum, biopsy: Gastric [...] MD 05/19/2021 1325 ID Date Data Source [id number] 03/01/2021 01:26:00 PM EDT [facility] ([facility]) Name Value Range Interpretation Code Description Data Natalie rce(s) Supporting Document(s) Hemoglobin A1c/Hemoglobin.total in Blood 5.3 % 4.4-6.1 [facility] ([facility]) Is patient fasting? N Iron [Mass/volume] in Serum or Plasma 89 ug/dL 42-135 [facility] ([facility]) Is patient fasting? N ID Date Data Source [id number] 03/01/2021 01:26:00 PM EDT [facility] ([facility]) Name Value Range Interpretation Code Description Data Natalie rce(s) Supporting Document(s) Cve Panel Laboratory test result [facility] ([facility]) Is patient fasting? N Triglycerides 149 mg/dL 35-160 [facility] ([facility]) Is patient fasting? N Cholesterol 137 mg/dL 131-200 [facility] ([facility]) Is patient fasting? N HDL 64 mg/dL 29-86 [facility] ([facility]) Is patient fasting? N LDL 68 mg/dL 65-175 [facility] ([facility]) Is patient fasting? N Risk Factor 2.1 3.2-4.4 Below low normal [facility] ([facility]) Is patient fasting? N LDL/HDL 1.06 1.47-3.22 Below low normal [facility] ( [facility]) Is patient fasting? N ID Date Data Source [id number] 03/01/2021 01:26:00 PM EDT [facility] ([facility]) Name Value Range Interpretation Code Description Data Natalie rce(s) Supporting Document(s) Thyrotropin [Units/volume] in Serum or Plasma 1.56 uIU/mL 0.47-5.01 [facility] ([facility]) Is patient fasting? N Calcidiol [Mass/volume] in Serum or Plasma 33 ng/mL [facility] ([facility]) Is patient fasting? N Cobalamin (Vitamin B12) [Mass/volume] in Serum or Plasma 1583 pg /mL 232-1245 Above high normal [facility] ([facility]) Is patient fasting? N ID Date Data Source [id number] 03/01/2021 01:26:00 PM EDT [facility] ([facility]) Name Value Range Interpretation Code Description Data Natalie rce(s) Supporting Document(s) Comprehensive Metabo Laboratory test result [facility] ([facility]) Is patient fasting? N Sodium 138 meq/L 134-153 [facility] ([facility]) Is patient fasting? N Potassium 4.5 meq/L 3.6-5.0 [facility] ([facility]) Is patient fasting? N Chloride 103 meq/L 98-107 [facility] ([facility]) Is patient fasting? N Co2 26 meq/L 22-30 [facility] ([facility]) Is patient fasting? N Glucose 85 mg/dL 70-99 [facility] ([facility]) Is patient fasting? N BUN 27 mg/dL 7-21 Above high normal [facility] ([facility]) Is patient fasting? N Creatinine 0.9 mg/dL 0.7-1.5 [facility] ([facility]) Is patient fasting? N BUN/Creat 30 8-27 Above high normal [facility] ([facility]) Is patient fasting? N Total Protein 7.6 g/dL 6.3-8.2 [facility] Is patient fasting? N Albumin 4.4 g/dL 3.9-5.0 [facility] ([facility]) Is patient fasting? N A/G Ratio 1.4 0.8-2.0 [facility] ([facility]) Is patient fasting? N Calcium 9.9 mg/dL 8.4-10.2 [facility] ([facility]) Is patient fasting? N Globulin 3.2 GM/DL 2.4-3.2 [facility] ([facility]) Is patient fasting? N Alkaline Phos 61 U/L 38-126 [facility] ([facility]) Is patient fasting? N Total Bili Laboratory test result 0.2-1.3 [facility] ([facility]) Is patient fasting? N Sgot/Ast 35 U/L 5-40 [facility] ([facility]) Is patient fasting? N SGPT/Alt 32 U/L 7-56 [facility] ([facility]) Is patient fasting? N Non-Aa GFR Laboratory test result [facility] ([facility]) Is patient fasting? N Age 70 yrs [facility] ([facility]) Is patient fasting? N Anion Gap 9.0 mmol/L 8.0-16.0 [facility] ([facility]) Is patient fasting? N Afr Amer GFR Laboratory test result [facility] ([facility]) Is patient fasting? N ID Date Data Source [id number] 03/01/2021 01:26:00 PM EDT [facility] ([facility]) Name Value Range Interpretation Code Description Data Natalie rce(s) Supporting Document(s) CBC No Diff Laboratory test result [facility] ([facility]) Is patient fasting? N WBC 6.7 10^3/uL 4.2-11.0 [facility] ([facility]) Is patient fasting? N RBC 4.58 10^6/uL 4.20-5.40 [facility] ([facility]) Is patient fasting? N Hemoglobin 12.5 g/dL 12.0-16.0 [facility] ([facility]) Is patient fasting? N MCV 84.1 fL 81.0-101 [facility] ([facility]) Is patient fasting? N Hematocrit 38.5 % 37.0-47.0 [facility] ([facility]) Is patient fasting? N MCH 27.3 pg 27.0-34.0 [facility] ([facility]) Is patient fasting? N MCHC 32.5 g/dL 31.0-36.0 [facility] ([facility]) Is patient fasting? N Platelets 200 10^3/uL 150-450 [facility] ([facility]) Is patient fasting? N RDW 14.3 % 11.5-14.5 [facility] ([facility]) Is patient fasting? N MPV 12.3 fL 7.4-10.4 Above high normal [facility] ([facility]) Is patient fasting? N ID Date Data Source [id number] 03/03/2021 08:34:00 AM EDT [facility] Value Range Interpretation Code Description Data Natalie rce(s) Supporting Document(s) Calcidiol [Moles/volume] in Serum or Plasma 33 NG/ML [facility] VITAMIN-D(2 5HYDROXY) Deficiency: <=20 ng/ml Insufficiency: 21-29 ng/ml Preferred level: => 30 ng/ml ID Date Data Source [id number] 03/01/2021 05:23:00 PM EDT [facility] Value Range Interpretation Code Description Data Natalie rce(s) Supporting Document(s) Cobalamin (Vitamin B12) [Mass/volume] in Serum or Plasma 1583 PG /ML 232 - 1245 H [facility] ID Date Data Source [id number] 03/01/2021 05:22:00 PM EDT [facility] Value Range Interpretation Code Description Data Natalie rce(s) Supporting Document(s) CBC NO DIFF [facility] ital COMPLETE BLOOD COUNT Leukocytes [#/volume] in Blood by Automated count 6.7 10^3/uL 4.2 - 1 1.0 [facility] Erythrocytes [#/volume] in Blood by Automated count 4.58 10^6/uL 4. 20 - 5.40 [facility] Hemoglobin [Mass/volume] in Blood 12.5 g/dL 12.0 - 16.0 [facility] Hematocrit [Volume Fraction] of Blood by Automated count 38.5 % 3 7.0 - 47.0 [facility] Erythrocyte mean corpuscular volume [Entitic volume] by Auto mated count 84.1 fL 81.0 - 101 [facility] Erythrocyte mean corpuscular hemoglobin [Entitic mass] by Automated count 27.3 pg 27.0 - 34.0 [facility] Erythrocyte mean corpuscular hemoglobin concentration [Mass/volume] by Automated count 32.5 g/dL 31.0 - 36.0 [facility] Erythrocyte distribution width [Ratio] by Automated count 14.3 % 11.5 - 14.5 [facility] Platelets [#/volume] in Blood by Automated count 200 10^3/uL 150 - 45 0 [facility] Platelet mean volume [Entitic volume] in Blood by Automated count 12.3 fL 7.4 - 10.4 H [facility] ID Date Data Source [id number] 03/01/2021 05:21:00 PM EDT [facility] Value Range Interpretation Code Description Data Natalie rce(s) Supporting Document(s) Thyrotropin [Units/volume] in Serum or Plasma by Detec tion limit <= 0.05 mIU/L 1.56 uIU/mL 0.47 - 5.01 [facility] ID Date Data Source [id number] 03/01/2021 05:20:00 PM EDT [facility] Name Value Range Interpretation Code Description Data Natalie rce(s) Supporting Document(s) CVE PANEL [facility] al LIPID PANEL Cholesterol [Mass/volume] in Serum or Plasma 137 MG/DL 131 - 200 [facility] Deprecated Triglyceride [Mass/volume] in Serum or Plasma 149 MG/DL 3 5 - 160 [facility] HDL 64 MG/DL 29 - [facility] Cholesterol in LDL [Mass/volume] in Serum or Plasma by Direc t assay 68 mg/dL 65 - 175 [facility] Cholesterol.total/Cholesterol in HDL [Mass Ratio] in Serum o r Plasma 2.1 3.2 - 4.4 L [facility] LDL/HDL 1.06 1.47 - 3.[address] [facility] CVE RISK CHOL/HDL LDL/HDLMEN: 1/2 AVERAGE 3.43 1.00 AVERAGE 4.97 3.55 2X AVERAGE 9.55 6.25 3X AVERAGE 23.99 7.99WOMEN: 1/2 AVERAGE 3.27 1.47 AVERAGE 4.44 3.22 2X AVERAGE 7.05 5.03 3X AVERAGE 11.04 6.14 ID Date Data Source [id number] 03/01/2021 05:20:00 PM EDT [facility] Name Value Range Interpretation Code Description Data Natalie e(s) Supporting Document(s) COMPREHENSIVE METABOLIC PANEL [facility] COMPREHENSIVE METABOLIC PANEL Sodium [Moles/volume] in Serum or Plasma 138 mEq/L 134 - 153 [facility] Potassium [Moles/volume] in Serum or Plasma 4.5 mEq/L 3.6 - 5.0 [facility] Chloride [Moles/volume] in Serum or Plasma 103 mEq/L 98 - 107 [facility] Carbon dioxide, total [Moles/volume] in Serum or Plasma 26 MEQ/L 22 - 30 [facility] Glucose [Mass/volume] in Serum or Plasma 85 MG/DL 70 - 99 [facility] BUN 27 MG/DL 7 - 21 H [facility] Creatinine [Mass/volume] in Serum or Plasma 0.9 MG/DL 0.7 - 1.5 [facility] BUN/CREAT 30 8 - 27 H [facility] Protein [Mass/volume] in Serum or Plasma 7.6 G/DL 6.3 - 8.2 [facility] Albumin [Mass/volume] in Serum or Plasma 4.4 G/DL 3.9 - 5.0 [facility] Globulin [Mass/volume] in Serum by calculation 3.2 GM/DL 2.4 - 3.2 [facility] A/G RATIO 1.4 0.8 - 2.0 [facility] Calcium [Mass/volume] in Serum or Plasma 9.9 MG/DL 8.4 - 10.2 [facility] Bilirubin.total [Mass/volume] in Serum or Plasma <0.7 MG/DL 0.2 - 1.3 [facility] Alkaline phosphatase [Enzymatic activity/volume] in Serum or Plasma 61 U/L 38 - 126 [facility] Aspartate aminotransferase [Enzymatic activity/volume] in Serum or Plasma 35 U/L 5 - 40 [facility] Alanine aminotransferase [Enzymatic activity/volume] in Seru m or Plasma 32 U/L 7 - 56 [facility] Anion gap 3 in Serum or Plasma 9.0 mmol/L 8.0 - 16.0 [facility] A[facility] [address] [facility] NON-[facility] GFR >60 mL/min [facility] ital AFR AMER GFR >60 [facility] Male GFR In terprentation 20-49 [...] >32 mL/min Normal ID Date Data Source [id number] 03/01/2021 05:20:00 PM EDT [facility] Name Value Range Interpretation Code Description Data Natalie rce(s) Supporting Document(s) Hemoglobin A1c/Hemoglobin.total in Blood 5.3 % 4.4 - 6.1 [facility] {A1]{HB] ID Date Data Source [id number] 03/01/2021 05:09:00 PM EDT [facility] Name Value Range Interpretation Code Description Data Natalie rce(s) Supporting Document(s) Iron [Mass/volume] in Serum or Plasma 89 UG/DL 42 - 135 [facility] ID Date Data Source [id number] 12/01/2020 03:45:00 PM EST [facility] ([facility]) Name Value Range Interpretation Code Description Data Natalie rce(s) Supporting Document(s) Inhouse EKG Laboratory test result [facility] ([facility]) ID Date Data Source [id number] 12/01/2020 03:05:00 PM EST [facility] ([facility]) Name Value Range Interpretation Code Description Data Natalie rce(s) Supporting Document(s) Mammo Screening Bilateral with CAD Laboratory test result [facility] ([facility]) Procedure Social History No Information Vital Signs ID Date Data Source UNK Name Value Range Interpretation Code Description Data Source(s) Systolic blood pressure 122 mm[Hg] 122 mm[Hg] [facility] ([facility]) Diastolic blood pressure 80 mm[Hg] 80 mm[Hg] [facility] ([facility]) Heart rate 65 /min 65 /min [facility] ([facility]) Body temperature 97.3 [degF] 97.3 [degF] [facility] ([facility]) Respiratory rate 16 /min 16 /min [facility] ( [facility]) Oxygen saturation in Arterial blood by Pulse oximetry 98 % 98 % [facility] ([facility]) Body weight 201.25 [lb_av] 201.25 [lb_av] [facility] ([facility]) Body weight 91.287 kg 91.287 kg [facility] ([facility]) Body height 68 [in_i] 68 [in_i] [...] pressure 132 mm[Hg] 132 mm[Hg] [facility] ([facility]) Diastolic blood pressure 60 mm[Hg] 60 mm[Hg] [facility] ([facility]) Heart rate 74 /min 74 /min [facility] ([facility]) Body temperature 97.2 [degF] 97.2 [degF] [facility] ([facility]) Respiratory rate 16 /min 16 /min [facility] ( [facility]) Oxygen saturation in Arterial blood by Pulse oximetry 98 % 98 % [facility] ([facility]) Body weight 204.12 [lb_av] 204.12 [lb_av] [facility] T ([facility]) Body weight 92.591 kg 92.591 kg [facility] ([facility]) Body height 66 [in_i] 66 [in_i] [facility] ([facility]) 5'6" Body mass index (BMI) [Ratio] 32.9 kg/m2 32.9 k g/m2 [facility] ([facility]) Body surface area Derived from formula 2.02 m2 2.02 m2 [facility] ([facility]) Systolic blood pressure 142 mm[Hg] 142 mm[Hg] [facility] ([facility]) Diastolic blood pressure 76 mm[Hg] 76 mm[Hg] [facility] ([facility]) Body height 66 [in_i] 66 [in_i] [facility] ([facility]) 5'6" Body mass index (BMI) [Ratio] 33.1 kg/m2 33.1 k g/m2 [facility] ([facility]) Body surface area Derived from formula 2.02 m2 2.02 m2 [facility] ([facility]) Heart rate 80 /min 80 /min [facility] ([facility]) Body temperature 96.9 [degF] 96.9 [degF] [facility] ([facility]) Body weight 205.00 [lb_av] 205.00 [lb_av] [facility] Body weight 92.988 kg 92.988 kg [facility] ([facility]) Systolic blood pressure 112 mm[Hg] 112 mm[Hg] [facility] ([facility]) Diastolic blood pressure 68 mm[Hg] 68 mm[Hg] [facility] ([facility]) Heart rate 69 /min 69 /min [facility] ([facility]) Body temperature 98.1 [degF] 98.1 [degF] [facility] ([facility]) Oxygen saturation in Arterial blood by Pulse oximetry 97 % 97 % [facility] ([facility]) Body weight 204.00 [lb_av] 204.00 [lb_av] [facility] Body weight 92.534 kg 92.534 kg [facility] ([facility]) Body height 66 [in_i] 66 [in_i] [facility] ([facility]) 5'6" Body mass index (BMI) [Ratio] 32.9 kg/m2 32.9 k g/m2 [facility] ([facility]) Body surface area Derived from formula 2.02 m2 2.02 m2 [facility] ([facility])
[2021-09-18 11:45] LABS: BASO % 0.5 % (0.0-1.0); EOS # 0.1 10^3/uL (0.0-0.5); EOS % 1.7 % (0.0-3.0); HEMATOCRIT 38.7 % (36.0-47.0); HEMOGLOBIN 12.4 g/dl (12.0-15.5); LYMPH # 1.7 10^3/uL (1.5-5.0); LYMPH % 27.2 % (24.0-44.0); MEAN CORPUSCULAR HEMOGLOBIN 27.2 pg (27.0-33.0); MEAN CORPUSCULAR VOLUME 84.9 fl (80.0-96.0); MONO # 0.6 10^3/uL (0.0-0.8); MONO % 10.1 % (2.0-8.0); NEUTROPHILS # 3.8 10^3/uL (1.5-8.5); NEUTROPHILS % 60.3 % (36.0-66.0); PLATELET COUNT, AUTOMATED 205 10^3/uL (150-450); RED BLOOD COUNT 4.56 10^6/uL (4.00-5.40); WHITE BLOOD COUNT 6.4 10^3/uL (4.0-10.0)
[2021-09-18 11:57] LABS: INR 0.95; PROTHROMBIN TIME 13.1 SECONDS (12.7-14.5)
[2021-09-18 11:58] LABS: PARTIAL THROMBOPLASTIN TIME 34.1 SECONDS (25.9-37.0)
[2021-09-18 12:26] LABS: ALBUMIN 3.9 GM/DL (3.2-5.2); ALT/SGPT 30 U/L (12-78); BILIRUBIN,DIRECT 0.2 MG/DL (0.0-0.2); BILIRUBIN,TOTAL 0.6 MG/DL (0.2-1.0); BLOOD UREA NITROGEN 28 MG/DL (7-18); CALCIUM LEVEL 9.4 MG/DL (8.8-10.2); CARBON DIOXIDE LEVEL 26 MEQ/L (21-32); CHLORIDE LEVEL 106 MEQ/L (98-107); CK-MB VALUE MASS 2.3 NG/ML (<3.6); CPK CREATINE PHOSPHOKINASE 227 U/L (26-192); CREATININE FOR GFR 1.28 MG/DL (0.55-1.30); GLOMERULAR FILTRATION RATE 43.6 (>39); GLUCOSE, FASTING 81 MG/DL (70-100); MB/CK RELATIVE INDEX 1.01 (< OR =4); SODIUM LEVEL 138 MEQ/L (136-145); TOTAL PROTEIN 8.1 GM/DL (6.4-8.2); TROPONIN I < 0.02 NG/ML (< 0.10)
--- NOTE | 2021-09-18 12:26 | REP ---
INDICATION: CVA. COMPARISON: None. TECHNIQUE: Portable FINDINGS: The technique utilized in obtaining the radiograph has magnified the cardiac silhouette and accentuated the interstitial markings. The superior mediastinal structures are midline. The cardiac silhouette is unremarkable in size, shape, and position. The diaphragmatic surfaces of the lungs are regular, and the costophrenic angles are clear. The pulmonary turpin are clear. The imaged osseous structures are intact. There are multiple old healed left-sided rib fractures. IMPRESSION: There is no acute cardiopulmonary disease. <Electronically signed by Marquez Lopez > 09/18/21 [id number]
[2021-09-18 12:30] LABS: RSV AMPLIFICATION NEGATIVE (NEGATIVE)
[2021-09-18] MEDS ORDERED: ASPIRIN 81 MG CHEW TABLET PO ONE ×2 (13:25→13:55)
[2021-09-18] MEDS ORDERED: OMEP-218 PO (13:31)
[2021-09-18] MEDS ORDERED: FLUTISP NARES (14:05)
[2021-09-18] MEDS ORDERED: CETI-24 PO (14:05)
[2021-09-18] MEDS ORDERED: HOME MED LIST COMPLETE! XX SCH (14:10)
--- NOTE | 2021-09-18 14:22 | HPEPDOC ---
General Date of Admission 09/18/21 Date of Service: Sep 18, 2021 Chief Complaint The patient is a 71-year-old female admitted with a reason for visit of General Medical Complaint. Source: Patient History of Present Illness Patient is 72 years old female with past medical history of hypertension, hyperlipidemia GERD presented to hospital after episode of dysarthria. Patient stated that yesterday evening she had articulation difficulties, her speech was broken and she could not express herself. Also patient noticed a right arm weakness. Patient stated that her symptoms completely resolved after 25 minutes. Patient denied fever, chills, nausea, itching, diarrhea dysuria. Patient denies any chest pain or palpitations. Patient stated that her blood pressure very well controlled and she checked her blood pressure on a daily basis. In ER patient was found to have no leukocytosis, CT scan negative for acute stroke or bleeding. EKG shows normal sinus rhythm without any acute ischemic changes Home Medications Scheduled Atorvastatin Calcium (Atorvastatin Calcium) 40 Mg Tablet, 40 MG PO QHS, (Reported) Cetirizine HCl (Cetirizine HCl) 10 Mg Tablet, 10 MG PO QHS, (Reported) Lisinopril (Lisinopril) 20 Mg Tablet, 20 MG PO DAILY, (Reported) Scheduled PRN Fluticasone Propionate (Fluticasone Propionate) 16 Gm [place].susp, 2 SPRAY NARES DAILY PRN for NASAL CONGESTION, (Reported) Omeprazole (Omeprazole) 20 Mg Capsule.dr, 20 MG PO DAILY PRN for HEARTBURN/INDIGESTION, (Reported) Allergies Coded Allergies: ENVIRONMENTAL (Verified Allergy, Unknown, 09/18/21) Past Medical History Medical History Hypertension, hyperlipidemia, GERD Family History Father from stroke Social History * Smoker: Denies Alcohol: Denies Drugs: denies A-FIB/CHADSVASC A-FIB History Current/History of A-Fib/PAF?: No Current PO Anticoag Therapy: No Review of Systems Constitutional: Denies: Chills, Fever Eyes: Denies: Pain ENT: Denies: Head Aches Skin: Denies: Rash Pulmonary: Denies: Dyspnea Cardiovascular: Denies: Chest Pain Gastrointestinal: Denies: Nausea Genitourinary: Denies: Dysuria Hematologic: Denies: Bruising Endocrine: Denies: Polydipsia Musculoskeletal: Denies: Neck Pain Neurological: Reports: Weakness (Right arm), Change in speech Psych: Reports: Mood Normal Physical Examination General Exam: Positive: Alert Eye Exam: Positive: PERRLA ENT Exam: Positive: Atraumatic Neck Exam: Positive: Supple; Negative: JVD Chest Exam: Positive: Clear to auscultation Heart Exam: Positive: Rate Normal Telemetry: Positive: No significant arrhythmia Abdomen Exam: Positive: Normal bowel sounds Extremity Exam: Negative: Clubbing Neuro Exam: Positive: Normal Gait Psych Exam: Positive: Mental status NL Vital Signs Vital Signs Date Time Temp Pulse Resp B/P (MAP) Pulse Ox O2 Delivery O2 Flow Rate FiO2 09/18/21 12:59 09/18/21 12:59 59 16 100 Room Air 09/18/21 08:30 97.5 Laboratory Data Labs 24H Laboratory Tests 2 09/18/21 11:26: Prothrombin Time 13.1, Prothromb Time International Ratio 0.95, Activated Partial Thromboplast Time 34.1 09/18/21 11:27: Immature Granulocyte % (Auto) 0.2, Neutrophils (%) (Auto) 60.3, Lymphocytes (%) (Auto) 27.2, Monocytes (%) (Auto) 10.1H, Eosinophils (%) (Auto) 1.7, Basophils (%) (Auto) 0.5, Neutrophils # (Auto) 3.8, Lymphocytes # (Auto) 1.7, Monocytes # (Auto) 0.6, Eosinophils # (Auto) 0.1, Basophils # (Auto) 0.0, Nucleated Red Blood Cells % (auto) 0.0, Anion Gap 6L, Glomerular Filtration Rate 43.6, Calcium Level 9.4, Total Bilirubin 0.6, Direct Bilirubin 0.2, Aspartate Amino Transf (AST/SGOT) 35, Alanine Aminotransferase (ALT/SGPT) 30, Alkaline Phosphatase 73, Total Creatine Kinase 227H, Creatine Kinase MB 2.3, Creatine Kinase MB Relative Index 1.01, Troponin I < 0.02, Total Protein 8.1, Albumin 3.9, Albumin/Globulin Ratio 0.9L, Coronavirus (COVID-19)(PCR) NEGATIVE, Influenza Type A (RT-PCR) NEG ATIVE, Influenza Type B (RT-PCR) NEGATIVE, Respiratory Syncytial Virus (PCR) NEGATIVE CBC/BMP Laboratory Tests 09/18/21 11:27 Assessment/Plan Patient is 72 years old female with past medical history of hypertension, hyperlipidemia GERD presented to hospital after episode of dysarthria. Patient stated that yesterday evening she had articulation difficulties, her speech was broken and she could not express herself. Also patient noticed a right arm weakness. Patient stated that her symptoms completely resolved after 25 minutes. Patient denied fever, chills, nausea, itching, diarrhea dysuria. Patient denies any chest pain or palpitations. Patient stated that her blood pressure very well controlled and she checked her blood pressure on a daily basis. In ER patient was found to have no leukocytosis, CT scan negative for acute stroke or bleeding. EKG shows normal sinus rhythm without any acute ischemic changes Problems (1) TIA (transient ischemic attack) Status: Acute Problem Text: Patient developed dysarthria with right upper extremity weakness which completely resolved after [address] head negative MRI, MRA, carotid ultrasound ordered Echo Aspirin 325 PT/OT (2) Hypertension Status: Chronic Problem Text: Continue lisinopril (3) Hyperlipidemia Status: Chronic Problem Text: Continue statin Plan / VTE VTE Prophylaxis Ordered?: Yes ANDRIA DARBY DO Sep 18, 2021 14:22
--- OUTSIDE RECORDS SUMMARY | 2021-09-18 14:24 | CCD ---
Author [facility] Organization [facility] Address Unknown Phone Unavailable Care Team Providers Care Artist And Repertoire Manager Name Role Phone Peter Unger MD Unavailable Unavailable Peter Ungre MD Unavailable Unavailable Peter Unger MD Unavailable [...] Unger MD Unavailable Unavailable LOPEZ, OZIEL DENNIS PHYSICAL THERAPIST TECHNICIAN Unavailable Unavailable LOPEZ, OZIEL DENNIS PHYSICAL THERAPIST TECHNICIAN Unavailable Unavailable LOPEZ, OZIEL DENNIS PHYSICAL THERAPIST TECHNICIAN Unavailable Unavailable LOPEZ, OZIEL DENNIS PHYSICAL THERAPIST TECHNICIAN Unavailable Unavailable LOPEZ, OZIEL DENNIS PHYSICAL THERAPIST TECHNICIAN Unavailable Unavailable LOPEZ, OZIEL DENNIS PHYSICAL THERAPIST TECHNICIAN Unavailable Unavailable LOPEZ, OZIEL DENNIS PHYSICAL THERAPIST TECHNICIAN Unavailable Unavailable LOPEZ, OZIEL DENNIS PHYSICAL THERAPIST TECHNICIAN Unavailable Unavailable LOPEZ, OZIEL DENNIS PHYSICAL THERAPIST TECHNICIAN Unavailable Unavailable LOPEZ, OZIEL DENNIS PHYSICAL THERAPIST TECHNICIAN Unavailable Unavailable LOPEZ, OZIEL DENNIS PHYSICAL THERAPIST TECHNICIAN Unavailable Unavailable LOPEZ, OZIEL DENNIS PHYSICAL THERAPIST TECHNICIAN Unavailable Unavailable LOPEZ, OZIEL DENNIS PHYSICAL THERAPIST TECHNICIAN Unavailable Unavailable LOPEZ, OZIEL DENNIS PHYSICAL THERAPIST TECHNICIAN Unavailable Unavailable LOPEZ, OZIEL DENNIS PHYSICAL THERAPIST TECHNICIAN Unavailable Unavailable LOPEZ, OZIEL DENNIS PHYSICAL THERAPIST TECHNICIAN Unavailable Unavailable LOPEZ, OZIEL DENNIS PHYSICAL THERAPIST TECHNICIAN Unavailable Unavailable LOPEZ, OZIEL DENNIS PHYSICAL THERAPIST TECHNICIAN Unavailable Unavailable LOPEZ, OZIEL DENNIS PHYSICAL THERAPIST TECHNICIAN Unavailable Unavailable LOPEZ, OZIEL DENNIS PHYSICAL THERAPIST TECHNICIAN Unavailable Unavailable LOPEZ, OZIEL DENNIS PHYSICAL THERAPIST TECHNICIAN Unavailable Unavailable LOPEZ, OZIEL DENNIS PHYSICAL THERAPIST TECHNICIAN Unavailable Unavailable LOPEZ, OZIEL DENNIS PHYSICAL THERAPIST TECHNICIAN Unavailable Unavailable Dayton Mccord MD Unavailable Unavailable [...] is protected by Article 27-F of the [place] Public Health law. If you continue you may have access to information: Regarding HIV / AIDS; Provided by facilities licensed or operated by the [facility] Office of Mental Health; or Provided by the [facility] Office for People With Developmental Disabilities. If such information is present, then the following [facility] mandated warning applies: This information has been [...] law may result in a fine or retirement sentence or both. A general authorization for the release of medical or other information is NOT sufficient authorization for further disc losure. Encounters Encounter Providers Location Date Indications Data Source(s ) Outpatient Attender: Jillian Mccord MD 1 02:54:00 PM EDT - 09/06/2021 02:54:00 PM EDT [facility] Outpatient Attender: Marco A Unger MD Main Office 04/18/2021 09:30:00 AM EDT [facility] ([facility]) Outpatient Attender: Jillian Mccord MD 0 03/01/2021 12:53:00 PM EDT - 03/01/2021 12:53:00 PM EDT [facility] Outpatient Attender: DENNIS LOPEZ NP 021 02:23:00 PM EST - 01/02/2021 02:23:00 PM [facility] Outpatient Attender: Jillian Mccord MD 0 12/01/2020 02:34:00 PM EST - 12/01/2020 02:34:00 PM EST [facility] Outpatient Attender: Jillian Mccord MD Family Practice 0 12/01/2020 01:40:00 PM EST [facility] ([facility]) Immunizations Vaccine Date Status Description Data Source(s) New in 2011. IIV4 09/06/2021 03:44:00 PM EDT completed [facility] ([facility]) pneumococcal polysaccharide PPV23 12/01/2020 02:40:00 PM EST comple jayy [facility] ([facility]) Medications Medication Brand Name Start Date Product Form Dose Route Admi nistrative Instructions Pharmacy Instructions Status Indications Reaction Description Data Source(s) Flonase Allergy Relief Flonase Allergy Relief 09/06/2021 12:00:00 AM E DT active [facility] ([facility]) Omeprazole 40 MG Delayed Release Oral Capsule Omeprazole 04/18/2021 12:00:00 AM EDT ORAL active [facility] ([facility]) Triamcinolone Acetonide 5 MG/ML Topical Cream Triamcinolone Acetonide 03/01/2021 12:00:00 AM EDT active M [facility] ([facility]) Omeprazole 20 MG Delayed Release Oral Capsule Omeprazole 12/02/2020 12:00:00 AM EST ORAL active [facility] ([facility]) atorvastatin 40 MG Oral Tablet Atorvastatin Calcium 12/01/2020 1 2:00:00 AM EST ORAL active [facility] ( [facility]) Insurance Providers Payer name Policy type / Coverage type Policy ID Covered constitution party ID Covered constitution party's relationship to kilgore Policy [place] Plan Information MEDICARE BLUE PPO [id number] SP [id number] [employer] MEDICARE HM [id number] [facility] MCR -OP [id number] Problems, Conditions, and Diagnoses Code Display Name Description Problem Type Effective Dates Data Source(s) Z23 Encounter for immunization Encounter for immunization Diagnosis 09/06/2021 02:54:00 PM EDT [facility] E785 Hyperlipidemia, unspecified Hyperlipidemia, unspecifie d Diagnosis 09/06/2021 02:54:00 PM EDT [facility] I10 Essential (primary) hypertension Essential (primary) h ypertension Diagnosis 09/06/2021 02:54:00 PM EDT [facility] J392 Other diseases of pharynx Other diseases of pharynx Di agnosis 09/06/2021 02:54:00 PM EDT [facility] [id number] Encounter for gynecological examination (general) (routine) without abnormal findings Encounter for gynecological examination (general) (routine) without abnormal findings Diagnosis 01/02/2021 02:23:00 PM [facility] Z1331 Encounter for screening for depression E ncounter for screening for depression Diagnosis 12/01/2020 02:34:00 PM [facility] K219 Gastro-esophageal reflux disease without esophagitis Gastro-esophageal reflux disease without esophagitis Diagnosis 12/01/2020 02:34:00 PM ES [facility] E669 Obesity, unspecified Obesity, unspecified Diagnosis 12/01/2020 02:34:00 PM [facility] [id number] Gastroesophageal reflux disease Gastroesophageal reflux disease Problem 04/18/2021 12:00:00 AM EDT [facility] E78.5 Hyperlipidemia Hyperlipidemia Problem 12/01/2020 12:00: 00 AM EST [facility] ([facility]) E66.9 Obesity Obesity Problem 12/01/2020 12:00:00 AM ES T [facility] ([facility]) [id number] Pure hypercholesterolemia Pure hypercholesterolemia Pr oblem 12/01/2020 12:00:00 AM EST [facility] ([facility]) [id number] Essential hypertension Essential hypertension Problem 12/01/2020 12:00:00 AM EST [facility] ([facility]) Surgeries/Procedures Procedure Description Date Indications Data Source(s) UPPER NDSC BIOPSY SINGLE/MULTIPLE 05/17/2021 12:00:00 AM EDT [facility] ([facility]) OFFICE OUTPATIENT NEW 45 MINUTES 04/18/2021 12:00:00 A M EDT [facility] ([facility]) Mammography (procedure) 01/24/2021 12:00:00 AM EDT [facility] ([facility]) Electrocardiogram Complete 12/01/2020 12:00:00 AM EST [facility] ([facility]) Brief Emotional/Behav Assessment W/ Scoring Doc Per Standard Inst 12/01/2020 12:00:00 AM EST [facility] ([facility]) Admin Patient Focused Health Risk Assessment Instrument 12/01/2020 12:00:00 AM EST [facility] ([facility]) Results ID Date Data Source [id number] 05/17/2021 01:20:00 PM EDT [facility] ([facility]) Name Value Range Interpretation Code Description Data Natalie rce(s) Supporting Document(s) Surgical pathology study Laboratory test result [facility] ([facility]) FINAL DIAGNOSIS A - Antrum, biopsy: [...] MD 05/19/2021 1325 ID Date Data Source [id number] 03/01/2021 01:26:00 PM EDT [facility] ([facility]) Name Value Range Interpretation Code Description Data Natalie rce(s) Supporting Document(s) Hemoglobin A1c/Hemoglobin.total in Blood 5.3 % 4.4-6.1 [facility] ([facility]) Is patient fasting? N Iron [Mass/volume] in Serum or Plasma 89 ug/dL 42-135 [facility] ([facility]) Is patient fasting? N ID Date Data Source [id number] 03/01/2021 01:26:00 PM EDT [facility] ([facility]) Name Value Range Interpretation Code Description Data Natalie rce(s) Supporting Document(s) Cve Panel Laboratory test result [facility] ([facility]) Is patient fasting? N Triglycerides 149 mg/dL 35-160 [facility] ([facility]) Is patient fasting? N Cholesterol 137 mg/dL 131-200 [facility] ([facility]) Is patient fasting? N HDL 64 mg/dL 29-86 [facility] ([facility]) Is patient fasting? N LDL 68 mg/dL 65-175 [facility] ([facility]) Is patient fasting? N Risk Factor 2.1 3.2-4.4 Below low normal [facility] ([facility]) Is patient fasting? N LDL/HDL 1.06 1.47-3.22 Below low normal [facility] ( [facility]) Is patient fasting? N ID Date Data Source [id number] 03/01/2021 01:26:00 PM EDT [facility] ([facility]) Name Value Range Interpretation Code Description Data Natalie rce(s) Supporting Document(s) Thyrotropin [Units/volume] in Serum or Plasma 1.56 uIU/mL 0.47-5.01 [facility] ([facility]) Is patient fasting? N Calcidiol [Mass/volume] in Serum or Plasma 33 ng/mL [facility] ([facility]) Is patient fasting? N Cobalamin (Vitamin B12) [Mass/volume] in Serum or Plasma 1583 pg /mL 232-1245 Above high normal [facility] ([facility]) Is patient fasting? N ID Date Data Source [id number] 03/01/2021 01:26:00 PM EDT [facility] ([facility]) Name Value Range Interpretation Code Description Data Natalie rce(s) Supporting Document(s) Comprehensive Metabo Laboratory test result [facility] ([facility]) Is patient fasting? N Sodium 138 meq/L 134-153 [facility] ([facility]) Is patient fasting? N Potassium 4.5 meq/L 3.6-5.0 [facility] ([facility]) Is patient fasting? N Chloride 103 meq/L 98-107 [facility] ([facility]) Is patient fasting? N Co2 26 meq/L 22-30 [facility] ([facility]) Is patient fasting? N Glucose 85 mg/dL 70-99 [facility] ([facility]) Is patient fasting? N BUN 27 mg/dL 7-21 Above high normal [facility] ([facility]) Is patient fasting? N Creatinine 0.9 mg/dL 0.7-1.5 [facility] ([facility]) Is patient fasting? N BUN/Creat 30 8-27 Above high normal [facility] ([facility]) Is patient fasting? N Total Protein 7.6 g/dL 6.3-8.2 [facility] Is patient fasting? N Albumin 4.4 g/dL 3.9-5.0 [facility]) Is patient fasting? N A/G Ratio 1.4 0.8-2.0 [facility] ([facility]) Is patient fasting? N Calcium 9.9 mg/dL 8.4-10.2 [facility] ([facility]) Is patient fasting? N Globulin 3.2 GM/DL 2.4-3.2 [facility] ([facility]) Is patient fasting? N Alkaline Phos 61 U/L 38-126 [facility] ([facility]) Is patient fasting? N Total Bili Laboratory test result 0.2-1.3 [facility] ([facility]) Is patient fasting? N Sgot/Ast 35 U/L 5-40 [facility] ([facility]) Is patient fasting? N SGPT/Alt 32 U/L 7-56 [facility] ([facility]) Is patient fasting? N Non-Aa GFR Laboratory test result [facility] ([facility]) Is patient fasting? N Age 70 yrs [facility] ([facility]) Is patient fasting? N Anion Gap 9.0 mmol/L 8.0-16.0 [facility] ([facility]) Is patient fasting? N Afr Amer GFR Laboratory test result [facility] ([facility]) Is patient fasting? N ID Date Data Source [id number] 03/01/2021 01:26:00 PM EDT [facility] ([facility]) Name Value Range Interpretation Code Description Data Natalie rce(s) Supporting Document(s) CBC No Diff Laboratory test result [facility] ([facility]) Is patient fasting? N WBC 6.7 10^3/uL 4.2-11.0 [facility] ([facility]) Is patient fasting? N RBC 4.58 10^6/uL 4.20-5.40 [facility] ([facility]) Is patient fasting? N Hemoglobin 12.5 g/dL 12.0-16.0 [facility] ([facility]) Is patient fasting? N MCV 84.1 fL 81.0-101 [facility] ([facility]) Is patient fasting? N Hematocrit 38.5 % 37.0-47.0 [facility] ([facility]) Is patient fasting? N MCH 27.3 pg 27.0-34.0 [facility] ([facility]) Is patient fasting? N MCHC 32.5 g/dL 31.0-36.0 [facility] ([facility]) Is patient fasting? N Platelets 200 10^3/uL 150-450 [facility] ([facility]) Is patient fasting? N RDW 14.3 % 11.5-14.5 [facility] ([facility]) Is patient fasting? N MPV 12.3 fL 7.4-10.4 Above high normal [facility] ([facility]) Is patient fasting? N ID Date Data Source [id number] 03/03/2021 08:34:[address] [facility] Value Range Interpretation Code Description Data Natalie rce(s) Supporting Document(s) Calcidiol [Moles/volume] in Serum or Plasma 33 NG/ML [facility] VITAMIN-D(2 5HYDROXY) Deficiency: <=20 ng/ml Insufficiency: 21-29 ng/ml Preferred level: => 30 ng/ml ID Date Data Source [id number] 03/01/2021 05:23:[address] [facility] Value Range Interpretation Code Description Data Natalie rce(s) Supporting Document(s) Cobalamin (Vitamin B12) [Mass/volume] in Serum or Plasma 1583 PG /ML 232 - 1245 H [facility] ID Date Data Source [id number] 03/01/2021 05:22:[address] [facility] Value Range Interpretation Code Description Data Natalie rce(s) Supporting Document(s) CBC NO DIFF [facility] COMPLETE BLOOD COUNT Leukocytes [#/volume] in Blood by Automated count 6.7 10^3/uL 4.2 - 1 1.0 [facility] Erythrocytes [#/volume] in Blood by Automated count 4.58 10^6/uL 4. 20 - 5.40 [facility] Hemoglobin [Mass/volume] in Blood 12.5 g/dL 12.0 - 16.0 [facility] Hematocrit [Volume Fraction] of Blood by Automated count 38.5 % 3 7.0 - 47.0 [facility] Erythrocyte mean corpuscular volume [Entitic volume] by Auto mated count 84.1 fL 81.0 - 101 [facility] Erythrocyte mean corpuscular hemoglobin [Entitic mass] by Automated count 27.3 pg 27.0 - 34.0 [facility] Erythrocyte mean corpuscular hemoglobin concentration [Mass/volume] by Automated count 32.5 g/dL 31.0 - 36.0 [facility] Erythrocyte distribution width [Ratio] by Automated count 14.3 % 11.5 - 14.5 [facility] Platelets [#/volume] in Blood by Automated count 200 10^3/uL 150 - 45 0 [facility] Platelet mean volume [Entitic volume] in Blood by Automated count 12.3 fL 7.4 - 10.4 H [facility] ID Date Data Source [id number] 03/01/2021 05:21:[address] [facility] Value Range Interpretation Code Description Data Natalie rce(s) Supporting Document(s) Thyrotropin [Units/volume] in Serum or Plasma by Detec tion limit <= 0.05 mIU/L 1.56 uIU/mL 0.47 - 5.01 [facility] ID Date Data Source [id number] 03/01/2021 05:20:00 PM EDT [facility] Name Value Range Interpretation Code Description Data Natalie rce(s) Supporting Document(s) CVE PANEL [facility] al LIPID PANEL Cholesterol [Mass/volume] in Serum or Plasma 137 MG/DL 131 - 200 [facility] Deprecated Triglyceride [Mass/volume] in Serum or Plasma 149 MG/DL 3 5 - 160 [facility] HDL 64 MG/DL 29 - 86 [facility] Cholesterol in LDL [Mass/volume] in Serum or Plasma by Direc t assay 68 mg/dL 65 - 175 [facility] Cholesterol.total/Cholesterol in HDL [Mass Ratio] in Serum o r Plasma 2.1 3.2 - 4.4 L [facility] LDL/HDL 1.06 1.47 - 3.22 L [facility] CVE RISK CHOL/HDL LDL/HDLMEN: 1/2 AVERAGE 3.43 1.00 AVERAGE 4.97 3.55 2X AVERAGE 9.55 6.25 3X AVERAGE 23.99 7.99WOMEN: 1/2 AVERAGE 3.27 1.47 AVERAGE 4.44 3.22 2X AVERAGE 7.05 5.03 3X AVERAGE 11.04 6.14 ID Date Data Source [id number] 03/01/2021 05:20:00 PM EDT [facility] Name Value Range Interpretation Code Description Data Natalie e(s) Supporting Document(s) COMPREHENSIVE METABOLIC PANEL [facility] COMPREHENSIVE METABOLIC PANEL Sodium [Moles/volume] in Serum or Plasma 138 mEq/L 134 - 153 [facility] Potassium [Moles/volume] in Serum or Plasma 4.5 mEq/L 3.6 - 5.0 [facility] Chloride [Moles/volume] in Serum or Plasma 103 mEq/L 98 - 107 [facility] Carbon dioxide, total [Moles/volume] in Serum or Plasma 26 MEQ/L 22 - 30 [facility] Glucose [Mass/volume] in Serum or Plasma 85 MG/DL 70 - 99 [facility] BUN 27 MG/DL 7 - 21 H [facility] al Creatinine [Mass/volume] in Serum or Plasma 0.9 MG/DL 0.7 - 1.5 [facility] BUN/CREAT 30 8 - 27 H [facility] al Protein [Mass/volume] in Serum or Plasma 7.6 G/DL 6.3 - 8.2 [facility] Albumin [Mass/volume] in Serum or Plasma 4.4 G/DL 3.9 - 5.0 [facility] Globulin [Mass/volume] in Serum by calculation 3.2 GM/DL 2.4 - 3.2 [facility] A/G RATIO 1.4 0.8 - 2.0 [facility] Calcium [Mass/volume] in Serum or Plasma 9.9 MG/DL 8.4 - 10.2 [facility] Bilirubin.total [Mass/volume] in Serum or Plasma <0.7 MG/DL 0.2 - 1.3 [facility] Alkaline phosphatase [Enzymatic activity/volume] in Serum or Plasma 61 U/L 38 - 126 [facility] Aspartate aminotransferase [Enzymatic activity/volume] in Serum or Plasma 35 U/L 5 - 40 [facility] Alanine aminotransferase [Enzymatic activity/volume] in Seru m or Plasma 32 U/L 7 - 56 [facility] Anion gap 3 in Serum or Plasma 9.0 mmol/L 8.0 - 16.0 [facility] 70 [facility] NON-[facility] GFR >60 mL/min [facility] AFR AMER GFR >60 [facility] Male GFR In terprentation [...] >32 mL/min Normal ID Date Data Source [id number] 03/01/2021 05:20:00 PM EDT [facility] Name Value Range Interpretation Code Description Data Natalie rce(s) Supporting Document(s) Hemoglobin A1c/Hemoglobin.total in Blood 5.3 % 4.4 - 6.1 [facility] {A1]{HB] ID Date Data Source [id number] 03/01/2021 05:09:00 PM EDT [facility] Name Value Range Interpretation Code Description Data Natalie rce(s) Supporting Document(s) Iron [Mass/volume] in Serum or Plasma 89 UG/DL 42 - 135 [facility] ID Date Data Source [id number] 12/01/2020 03:45:00 PM EST [facility] ([facility]) Name Value Range Interpretation Code Description Data Natalie rce(s) Supporting Document(s) Inhouse EKG Laboratory test result [facility] ([facility]) ID Date Data Source [id number] 12/01/2020 03:05:00 PM EST [facility] ([facility]) Name Value Range Interpretation Code Description Data Natalie rce(s) Supporting Document(s) Mammo Screening Bilateral with CAD Laboratory test result [facility] ([facility]) Procedure Social History No Information Vital Signs ID Date Data Source [id number] Name Value Range Interpretation Code Description Data Source(s) Systolic blood pressure 122 mm[Hg] 122 mm[Hg] [facility] ([facility]) Diastolic blood pressure 80 mm[Hg] 80 mm[Hg] [facility] ([facility]) Heart rate 65 /min 65 /min [facility] ([facility]) Body temperature 97.3 [degF] 97.3 [degF] [facility] ([facility]) Respiratory rate 16 /min 16 /min [facility] ( [facility]) Oxygen saturation in Arterial blood by Pulse oximetry 98 % 98 % [facility] ([facility]) Body weight 201.25 [lb_av] 201.25 [lb_av] [facility] ([facility]) Body weight 91.287 kg 91.287 kg [facility] ([facility]) Body height 68 [in_i] 68 [in_i] [facility] [...] pressure 132 mm[Hg] 132 mm[Hg] [facility] ([facility]) Diastolic blood pressure 60 mm[Hg] 60 mm[Hg] [facility] ([facility]) Heart rate 74 /min 74 /min [facility] ([facility]) Body temperature 97.2 [degF] 97.2 [degF] [facility] ([facility]) Respiratory rate 16 /min 16 /min [facility] ( [facility]) Oxygen saturation in Arterial blood by Pulse oximetry 98 % 98 % [facility] ([facility]) Body weight 204.12 [lb_av] 204.12 [lb_av] [facility] ([facility]) Body weight 92.591 kg 92.591 kg [facility] ([facility]) Body height 66 [in_i] 66 [in_i] [facility] ([facility]) 5'6" Body mass index (BMI) [Ratio] 32.9 kg/m2 32.9 k g/m2 [facility] ([facility]) Body surface area Derived from formula 2.02 m2 2.02 m2 [facility]) Systolic blood pressure 142 mm[Hg] 142 mm[Hg] [facility] ([facility]) Diastolic blood pressure 76 mm[Hg] 76 mm[Hg] [facility] ([facility]) Body height 66 [in_i] 66 [in_i] [facility] ([facility]) 5'6" Body mass index (BMI) [Ratio] 33.1 kg/m2 33.1 k g/m2 [facility] ([facility]) Body surface area Derived from formula 2.02 m2 2.02 m2 [facility] ([facility]) Heart rate 80 /min 80 /min [facility] ([facility]) Body temperature 96.9 [degF] 96.9 [degF] [facility] ([facility]) Body weight 205.00 [lb_av] 205.00 [lb_av] [facility] Body weight 92.988 kg 92.988 kg [facility] ([facility]) Systolic blood pressure 112 mm[Hg] 112 mm[Hg] [facility] ([facility]) Diastolic blood pressure 68 mm[Hg] 68 mm[Hg] [facility] ([facility]) Heart rate 69 /min 69 /min [facility] ([facility]) Body temperature 98.1 [degF] 98.1 [degF] [facility] ([facility]) Oxygen saturation in Arterial blood by Pulse oximetry 97 % 97 % [facility] ([facility]) Body weight 204.00 [lb_av] 204.00 [lb_av] [facility] Body weight 92.534 kg 92.534 kg [facility] ([facility]) Body height 66 [in_i] 66 [in_i] [facility] ([facility]) 5'6" Body mass index (BMI) [Ratio] 32.9 kg/m2 32.9 k g/m2 [facility] ([facility]) Body surface area Derived from formula 2.02 m2 2.02 m2 [facility] ([facility])
[2021-09-18] MEDS ORDERED: OMEPRAZOLE 20 MG CAP PO PRN (14:25)
[2021-09-18] MEDS ORDERED: FLUTICASONE PROP 0.05% NASAL SPRAY 16 GM (FLONASE) NARES PRN (14:25)
[2021-09-18 15:17] LABS: CHOLESTEROL LEVEL 143 MG/DL (<200); CHOLESTEROL RISK RATIO 2.344 (<5); HDL CHOLESTEROL 61 MG/DL (>40); LDL CHOLESTEROL 68 MG/DL (<100); NON-HDL-C 82 MG/DL; TRIGLYCERIDES LEVEL 68 MG/DL (<150)
[2021-09-18 18:00] VITALS: BP 124/58
--- NOTE | 2021-09-18 20:45 | REPVR ---
PROCEDURE INFORMATION: Exam: MRA Head Without Contrast; Arteriography Exam date and time: 09/18/2021 7:39 PM Age: 71 years old Clinical indication: Other: TIA TECHNIQUE: Imaging protocol: Magnetic resonance angiography head without contrast. Exam focused on the arteries. COMPARISON: CT Head without contrast 09/18/2021 9:10 AM FINDINGS: ANTERIOR CIRCULATION: Right internal carotid artery: Intracranial segment is patent with no significant stenosis. No aneurysm. Right middle cerebral artery: No occlusion or significant stenosis. No aneurysm. Right anterior cerebral artery: No occlusion or significant stenosis. No aneurysm. Left internal carotid artery: Intracranial segment is patent with no significant stenosis. No aneurysm. Left middle cerebral artery: No occlusion or significant stenosis. No aneurysm. Left anterior cerebral artery: No occlusion or significant stenosis. No aneurysm. POSTERIOR CIRCULATION: Right vertebral artery: Hypoplastic V4 segment right vertebral artery. Left vertebral artery: No occlusion or significant stenosis. No aneurysm. Basilar artery: Tortuous basilar artery. Right posterior cerebral artery: No occlusion or significant stenosis. No aneurysm. Left posterior cerebral artery: No occlusion or significant stenosis. No aneurysm. IMPRESSION: 1. Hypoplastic V4 segment right vertebral artery. 2. Otherwise unremarkable. Electronically signed by: Dewey Carrillo On 09/18/2021 20:44:26 PM
--- NOTE | 2021-09-18 20:48 | REPVR ---
PROCEDURE INFORMATION: Exam: MR Head Without Contrast Exam date and time: 09/18/2021 7:39 PM Age: 71 years old Clinical indication: Other: TIA TECHNIQUE: Imaging protocol: MR of the head without contrast. COMPARISON: CT Head without contrast 09/18/2021 9:10 AM FINDINGS: Brain: Minimal periventricular white matter changes consistent with patient age. Cerebral ventricles: Normal. No ventriculomegaly. 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 Bones/joints: Unremarkable. Paranasal sinuses: Normal as visualized. No acute sinusitis. Mastoid air cells: Normal as visualized. No mastoid effusion. Orbital cavity: Unremarkable. Soft tissues: Unremarkable. IMPRESSION: 1. 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 2. No acute intracranial findings. Electronically signed by: Dewey Carrillo On 09/18/2021 20:47:59 PM
[2021-09-18] MEDS: CETIRIZINE (ZyrTEC) 10 MG TAB PO SCH (21:20)
[2021-09-18] MEDS: ATORVASTATIN 20 MG TAB PO SCH (21:20)
[2021-09-18 22:00] VITALS: BP 114/53
[2021-09-19 02:00] VITALS: BP_SYST 101; BP_DIAS 41; BP_DIAS 74
[2021-09-19 06:00] VITALS: BP 108/61
[2021-09-19 06:27] LABS: HEMOGLOBIN 11.7 g/dl (12.0-15.5); MEAN CORPUSCULAR HEMOGLOBIN 27.2 pg (27.0-33.0); MEAN CORPUSCULAR HGB CONC 32.5 g/dl (32.0-36.5); MEAN CORPUSCULAR VOLUME 83.7 fl (80.0-96.0); PLATELET COUNT, AUTOMATED 197 10^3/uL (150-450); WHITE BLOOD COUNT 5.1 10^3/uL (4.0-10.0)
--- NOTE | 2021-09-19 06:33 | ECGEPIP ---
[facility] - ED Test Date: 2021-09-18 Pat Name: SHERIN DONALD Department: Room: - Gender: Female [employer]: : 1950 Requested By: MANNY Metcalf Order Number: [id number] Reading MD: Toro Beltran Measurements Intervals [place] Rate: 58 P: 4 MA: 154 QRS: 63 QRSD: 86 T: 11 QT: 428 QTc: 420 Interpretive Statements Sinus bradycardia with sinus arrhythmia Nonspecific ST T wave changes inferior wall myocardial infarction age undetermined No prior ECG for comparison Electronically Signed on 09-19-2021 6:33:38 EST by Toro Beltran
[2021-09-19 06:48] LABS: ALBUMIN 3.5 GM/DL (3.2-5.2); BILIRUBIN,TOTAL 0.5 MG/DL (0.2-1.0); CALCIUM LEVEL 9.3 MG/DL (8.8-10.2); CREATININE FOR GFR 1.19 MG/DL (0.55-1.30); GLOMERULAR FILTRATION RATE 47.5 (>39); MAGNESIUM LEVEL 2.3 MG/DL (1.8-2.4); POTASSIUM SERUM 4.8 MEQ/L (3.5-5.1); TOTAL PROTEIN 7.1 GM/DL (6.4-8.2)
--- NOTE | 2021-09-19 09:23 | REP ---
INDICATION: TIA COMPARISON: None. TECHNIQUE: Real-time ultrasound evaluation and duplex Doppler interrogation of the extracranial carotid vasculature is performed. FINDINGS: There is soft plaquing and narrowing in both carotid bulbs extending into the internal and external carotid arteries. There is no evidence of hemodynamically significant stenosis of either internal carotid artery. Normal flow velocities are seen. The vertebral arteries demonstrate normal direction of flow. RIGHT LEFT Peak systolic velocity ICA 128.8 cm/s 102.9 cm/s End diastolic velocity ICA 46.6 cm/s 40.7 cm/s Peak systolic velocity CCA 78.5 cm/s 103.7cm/s Peak systolic velocity ECA 117 cm/s 74.8 cm/s ICA/CCA ratio 1.64 0.99 IMPRESSION: Bilateral luminal narrowing of the internal carotid arteries, moderate on the right in the range 50 to 69% and mild on the left at less than 50%. Cranial direction of flow in the vertebral arteries. <Electronically signed by Pablo Polo > 09/19/21 0960
[2021-09-19] MEDS: ENOXAPARIN 40MG/0.4ML SYRINGE (J1650 PER 10MG) SC SCH (10:01)
[2021-09-19] MEDS ORDERED: ISOVUE-370 76% 100ML VIAL As Ordered ONE (13:37)
[2021-09-19 14:00] VITALS: BP 106/51
--- NOTE | 2021-09-19 16:54 | IPNPDOC ---
Text Note Date of Service The patient was seen on 09/19/21. NOTE Subjective: No any acute events overnight. Patient denies any focal weaknesses Objective: GENERAL APPEARANCE: NAD HEENT: no scleral icterus, no JVD, EOMI CARDIOVASCULAR: S1S2 LUNGS: Diminished lung sounds bilaterally ABDOMEN: soft & not tender w palpation MUSCULOSKELETAL: no cyanosis, no swelling INTEGUMENT: no generalized pallor NEUROLOGICAL: cranial nerve function from 2-12 intact, follows commands, speech not dysarthric Assessment/Plan Patient is 72 years old female with past medical history of hypertension, hyperlipidemia GERD presented to hospital after episode of dysarthria. Patient stated that yesterday evening she had articulation difficulties, her speech was broken and she could not express herself. Also patient noticed a right arm weakness. Patient stated that her symptoms completely resolved after 25 minutes. Patient denied fever, chills, nausea, itching, diarrhea dysuria. Patient denies any chest pain or palpitations. Patient stated that her blood pressure very well controlled and she checked her blood pressure on a daily basis. In ER patient was found to have no leukocytosis, CT scan negative for acute stroke or bleeding. EKG shows normal sinus rhythm without any acute ischemic changes Problems (1) TIA (transient ischemic attack) Patient developed dysarthria with right upper extremity weakness which completely resolved after [address] head negative MRI, MRA, CTA Neck negative for stroke, acute bleeding, stenosis Echo pending PT/OT (2) Hypertension Blood pressure under control Continue lisinopril (3) Hyperlipidemia Continue statin Plan / VTE VTE Prophylaxis Ordered?: Yes VS,Fishbone, I+O VS, Fishbone, I+O Laboratory Tests 09/19/21 05:21 Vital Signs Date Time Temp Pulse Resp B/P (MAP) Pulse Ox O2 Delivery O2 Flow Rate FiO2 09/19/21 06:00 97.5 68 16 108/61 (77) 97 Room Air I&O- Last 24 Hours up to 6 AM 09/19/21 06:00 Intake Total 0 ml Output Total 0 ml Balance 0 ml ANDRIA DARBY DO Sep 19, 2021 16:54
--- NOTE | 2021-09-19 17:48 | REPVR ---
PROCEDURE INFORMATION: Exam: CT Angiography Neck With Contrast Exam date and time: 09/19/2021 2:29 PM Age: 71 years old Clinical indication: Condition or disease; Occlusion or stenosis of cerebral arteries; Additional info: Carotid artery stenosis TECHNIQUE: Imaging protocol: Computed tomography angiography of the neck with contrast. 3D rendering (Not supervised by radiologist): MIP and/or 3D reconstructed images were created by the technologist. Radiation optimization: All CT scans at this facility use at least one of these dose optimization techniques: automated exposure control; mA and/or kV adjustment per patient size (includes targeted exams where dose is matched to clinical indication); or iterative reconstruction. Contrast material: ISOVUE 370; Contrast volume: 100 ml; Contrast route: INTRAVENOUS (IV); COMPARISON: US Duplex,carotid (complete) 09/18/2021 8:05 PM FINDINGS: Right common carotid artery: No stenosis. No dissection or occlusion. Right internal carotid artery: No stenosis of the extracranial segment. No dissection or occlusion. Right external carotid artery: No occlusion or stenosis of the origin. Left common carotid artery: No stenosis. No dissection or occlusion. Left internal carotid artery: No stenosis of the extracranial segment. No dissection or occlusion. Left external carotid artery: No occlusion or stenosis of the origin. 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 Left vertebral artery: No stenosis. No dissection or occlusion. Soft tissues: Normal. No significant soft tissue swelling. Bones/joints: Mild degenerative changes of the cervical spine are present. IMPRESSION: No acute abnormality. REFERENCES: NASCET CRITERIA. The degree of internal carotid artery stenosis is based on NASCET criteria. Normal is no stenosis. Mild is less than 50% stenosis. Moderate is 50-69% stenosis. Severe is 70% to 99% stenosis. Total occlusion is no detectable patent lumen. Electronically signed by: aDnte Gongora On 09/19/2021 17:48:21 PM
[2021-09-19] MEDS: ATORVASTATIN 20 MG TAB PO SCH (20:56)
[2021-09-19] MEDS: CETIRIZINE (ZyrTEC) 10 MG TAB PO SCH (20:56)
[2021-09-19 22:00] VITALS: BP 108/58
[2021-09-20 06:00] VITALS: BP 95/55
--- NOTE | 2021-09-20 08:53 | ECHO ---
ECHOCARDIOGRAM DATE OF PROCEDURE: 09/19/2021 Age: Gender: Height: 168 cm Weight: 94 kg REFERRING PHYSICIAN: Dr. Bucky Odonnell INDICATION: Cerebral infarction, unspecified. MEASUREMENTS: 2D Measurements: LVOT: 2.7 cm Interventricular septum: 0.3 cm Posterior wall: 0.2 cm Left ventricle diastole: 4.3 cm Left atrium: 2.6 cm Aortic root: 3.1 cm Inferior vena cava: 2.0 cm (more than 50% respiratory variation) Doppler Measurements: No aortic regurgitation Aortic valve velocity: 159 cm/s LVOT velocity: 102 cm/s No mitral regurgitation Mitral E velocity: 65.1 cm/s Mitral A velocity: 76.7 cm/s Mitral deceleration time: 326 msec Mild tricuspid regurgitation, within normal limits Estimated right ventricular systolic pressure: 27-32 mmHg Estimated right atrial pressure: 5-10 mmHg Pulmonary acceleration time: 109 msec MITRAL ANNULAR TISSUE DOPPLER E prime septal: 6.4 cm/s E prime lateral: 9.5 cm/s CONCLUSIONS: 1. Normal left ventricle internal dimensions and wall thickness. Normal regional left ventricle (LV) wall motion and wall thickening. Normal left ventricle (LV) systolic function. Left ventricular ejection fraction (LVEF) 65% to 70%. Grade 1 left ventricle (LV) diastolic dysfunction. 2. Mild aortic valve sclerosis of a 3-cuspid aortic valve. No aortic regurgitation. 3. A saline bubble study was poor quality and not diagnostic. 4. Otherwise, normal-appearing echocardiogram and Doppler findings.
[2021-09-20] MEDS: ENOXAPARIN 40MG/0.4ML SYRINGE (J1650 PER 10MG) SC SCH (09:02)
[2021-09-20] MEDS ORDERED: LISI10TA22 PO (11:21)
[2021-09-20 12:28] VITALS: BP 144/82
--- NOTE | 2021-09-20 16:49 | DS.PDOC ---
Discharge Summary General Date of Admission Sep 18, 2021 at 13:53 Date of Discharge 09/20/21 Discharge Summary PROCEDURES PERFORMED DURING STAY: [None]. ADMITTING DIAGNOSES: TIA (transient ischemic attack) Hypertension Hyperlipidemia DISCHARGE DIAGNOSES: TIA (transient ischemic attack) Hypertension Hyperlipidemia COMPLICATIONS/CHIEF COMPLAINT: TIA. HISTORY OF PRESENT ILLNESS: Patient is 72 years old female with past medical history of hypertension, hyperlipidemia GERD presented to hospital after episode of dysarthria. Patient stated that yesterday evening she had articulation difficulties, her speech was broken and she could not express herself. Also patient noticed a right arm weakness. Patient stated that her symptoms completely resolved after 25 minutes. Patient denied fever, chills, nausea, itching, diarrhea dysuria. Patient denies any chest pain or palpitations. Patient stated that her blood pressure very well controlled and she checked her blood pressure on a daily basis. In ER patient was found to have no leukocytosis, CT scan negative for acute stroke or bleeding. EKG shows normal sinus rhythm without any acute ischemic changes HOSPITAL COURSE: During the hospital stay the following issue addressed (1) TIA (transient ischemic attack) Patient developed dysarthria with right upper extremity weakness which completely resolved after [address] head negative MRI, MRA, CTA Neck negative for stroke, acute bleeding, stenosis Echo shows mild diastolic dysfunction PT/OT (2) Hypertension Blood pressure under control I reduced the dose of lisinopril to 10 mg due to hypotension in the morning (3) Hyperlipidemia Continue statin DISCHARGE MEDICATIONS: Please see below. ALLERGIES: Please see below. PHYSICAL EXAMINATION ON DISCHARGE: VITAL SIGNS: Please see below. GENERAL APPEARANCE: NAD HEENT: no scleral icterus, no JVD, EOMI CARDIOVASCULAR: S1S2 LUNGS: Diminished lung sounds bilaterally ABDOMEN: soft & not tender w palpation MUSCULOSKELETAL: no cyanosis, no swelling INTEGUMENT: no generalized pallor NEUROLOGICAL: cranial nerve function from 2-12 intact, follows commands, speech not dysarthric LABORATORY DATA: Please see below. IMAGING: [facility] NAME: SHERIN DONALD DATE OF : 1950 BUSINESS NUMBER: [id number] AGE: 71 SEX: F REPORT #: [id number] ROOM: [facility] TECHNOLOGIST: CDAVI DOCTOR: ANDRIA DARBY DO Ordered for Date&Time: 09/18/21 1353 cc: [~ rep ct ivnm] Service Date&Time: 09/18/211938 This report is in Signed status. Interpretation performed by [facility]. Thank you for having your radiology procedures performed at [facility] RADIOLOGY REPORT Date&Time printed: [~ rep prt dt last] [~ rep prt tm last] Page 2 of [address] [address] RADIOLOGY REPORT This report is in Signed status. Interpretation performed by [facility]. Thank you for having your radiology procedures performed at [facility] RADIOLOGY REPORT Date&Time printed: [~ rep prt dt last] [~ rep prt tm last] Page 1 of 2 PROCEDURE INFORMATION: Exam: MRA Head Without Contrast; Arteriography Exam date and time: 09/18/2021 7:39 PM Age: 71 years old Clinical indication: Other: TIA TECHNIQUE: Imaging protocol: Magnetic resonance angiography head without contrast. Exam focused on the arteries. COMPARISON: CT Head without contrast 09/18/2021 9:10 AM FINDINGS: ANTERIOR CIRCULATION: Right internal carotid artery: Intracranial segment is patent with no significant stenosis. No aneurysm. Right middle cerebral artery: No occlusion or significant stenosis. No aneurysm. Right anterior cerebral artery: No occlusion or significant stenosis. No aneurysm. Left internal carotid artery: Intracranial segment is patent with no significant stenosis. No aneurysm. Left middle cerebral artery: No occlusion or significant stenosis. No aneurysm. Left anterior cerebral artery: No occlusion or significant stenosis. No aneurysm. POSTERIOR CIRCULATION: Right vertebral artery: Hypoplastic V4 segment right vertebral artery. Left vertebral artery: No occlusion or significant stenosis. No aneurysm. Basilar artery: Tortuous basilar artery. Right posterior cerebral artery: No occlusion or significant stenosis. No aneurysm. Left posterior cerebral artery: No occlusion or significant stenosis. No aneurysm. IMPRESSION: 1. Hypoplastic V4 segment right vertebral artery. 2. Otherwise unremarkable. Electronically signed by: Dewey Gallegos On 09/18/2021 20:44:26 PM DD: DEWEY GALLEGOS MD 09/18/211938 DT: DEBBY 09/18/212043 DS: MANOJ 09/18/212043 [~ rep ct labl] [facility] NAME: SHERIN DONALD DATE OF : 1950 BUSINESS NUMBER: [id number] AGE: 71 SEX: F REPORT #: [id number] ROOM: [facility] TECHNOLOGIST: [id number] DOCTOR: ANDRIA DARBY DO Ordered for Date&Time: 09/18/21 1353 cc: [~ rep ct ivnm] Service Date&Time: 09/18/211938 This report is in Signed status. Interpretation performed by [facility]. Thank you for having your radiology procedures performed at [facility] RADIOLOGY REPORT Date&Time printed: [~ rep prt dt last] [~ rep prt tm last] Page 2 of [address] [address] RADIOLOGY REPORT This report is in Signed status. Interpretation performed by [facility]. Thank you for having your radiology procedures performed at [facility] RADIOLOGY REPORT Date&Time printed: [~ rep prt dt last] [~ rep prt tm last] Page 1 of 1 PROCEDURE INFORMATION: Exam: MR Head Without Contrast Exam date and time: 09/18/2021 7:39 PM Age: 71 years old Clinical indication: Other: TIA TECHNIQUE: Imaging protocol: MR of the head without contrast. COMPARISON: CT Head without contrast 09/18/2021 9:10 AM FINDINGS: Brain: Minimal periventricular white matter changes consistent with patient age. Cerebral ventricles: Normal. No ventriculomegaly. 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 Bones/joints: Unremarkable. Paranasal sinuses: Normal as visualized. No acute sinusitis. Mastoid air cells: Normal as visualized. No mastoid effusion. Orbital cavity: Unremarkable. Soft tissues: Unremarkable. IMPRESSION: 1. 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 2. No acute intracranial findings. Electronically signed by: Dewey Gallegos On 09/18/2021 20:47:59 PM DD: DEWEY GALLEGOS MD 09/18/211938 DT: DEBBY 09/18/212046 DS: MANOJ 09/18/212046 [~ rep ct labl] PROGNOSIS:good ACTIVITY: [As tolerated]. DIET: cardiac DISPOSITION: 01 Home, Self-Care. ITEMS TO FOLLOWUP ON ON OUTPATIENT: with pcp DISCHARGE CONDITION: [Stable]. TIME SPENT ON DISCHARGE: 40 minutes. Vital Signs/I&Os Vital Signs Date Time Temp Pulse Resp B/P (MAP) Pulse Ox O2 Delivery O2 Flow Rate FiO2 09/20/21 12:28 144/82 (102) 09/20/21 06:00 97.8 63 16 98 Room Air I&O- Last 24 Hours up to 6 AM 09/20/21 06:00 Intake Total 1540 ml Output Total 500 ml Balance 1040 ml Discharge Medications Scheduled Atorvastatin Calcium (Atorvastatin Calcium) 40 Mg Tablet, 40 MG PO QHS, (Reported) Cetirizine HCl (Cetirizine HCl) 10 Mg Tablet, 10 MG PO QHS, (Reported) Lisinopril (Lisinopril) 10 Mg Tablet, 10 MG PO DAILY Scheduled PRN Fluticasone Propionate (Fluticasone Propionate) 16 Gm [place].susp, 2 SPRAY NARES DAILY PRN for NASAL CONGESTION, (Reported) Omeprazole (Omeprazole) 20 Mg Capsule.dr, 20 MG PO DAILY PRN for HEARTBURN/INDIGESTION, (Reported) Allergies Coded Allergies: ENVIRONMENTAL (Verified Allergy, Unknown, 09/18/21) ANDRIA DARBY DO Sep 20, 2021 16:49
== END 2021-09-20 13:32 | disposition home or self-care (01) ==
LOC: M ED 08:29 → M ED INP 13:53 → ENRESERV 15:15 → M MSPAV 18:17
PROVIDERS: ADMIT Internal Medicine; ATTEND Internal Medicine
DX: G45.9 Transient cerebral ischemic attack, unspecified (principal); I10 Essential (primary) hypertension; E78.5 Hyperlipidemia, unspecified; Z79.899 Other long term (current) drug therapy
CPT/HCPCS: 36415; 70450; 70498; 70544; 70551; 71045; 80048; 80053; 80061; 80076; 82550; 82553; 83735; 84484; 85025; 85027; 85610; 85730; 87631; 93005; 93041; 93306; 93880; 94760; 96372; 97161; 97165; 97530; 99285; G0378; J1650; Q9967

== ENCOUNTER → 2023-01-21 | Outpatient (CLI) | payer MEDICARE ==
[~2023-01-21] MED LIST changes: +CETI-24 PO; +FLUTISP NARES; +LISI10TA22 PO; +OMEP-173 PO; -OMEP-221; +OMEP40CA5
== END ==
LOC: M WHC 09:21
PROVIDERS: ATTEND Internal Medicine
DX: Z12.31 Encounter for screening mammogram for malignant neoplasm of breast (principal)